=== PATIENT | female | born 1960 | race Caucasian/White ===

== ENCOUNTER 2021-02-25 08:15 | Outpatient (REF) | payer OTHER, SELFPAY ==
--- NOTE | ~2021-02-25 | XR_ITS ---
EXAMINATION: XR KNEE AP STANDING CLINICAL INFORMATION: Pain. COMPARISON: Left knee radiographs dated 03/25/2007. TECHNIQUE: AP bilateral standing view of the knees was obtained. FINDINGS: Right Knee: Mild medial compartment joint space narrowing. Small medial and lateral compartment marginal osteophytes. No osseous erosion. No fracture or dislocation. No abnormal soft tissue calcification. Left Knee: Mild medial compartment joint space narrowing. Small medial and lateral compartment marginal osteophytes. No osseous erosion. No fracture or dislocation. No abnormal soft tissue calcification. XR/XR knee standing BI IMPRESSION: RIGHT KNEE: Mild medial and lateral compartment. 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
== END 2021-02-25 08:16 | disposition home or self-care (01) ==
LOC: HO.HOSX 08:15
PROVIDERS: Visit Provider Orthopaedic Surgery
DX: M25.561 Pain in right knee (principal)
CPT/HCPCS: 20610; 73565; 99202; J1100

== ENCOUNTER → 2021-06-03 14:52 | Outpatient (BNVA) | payer OTHER, SELFPAY | PROVIDERS: Visit Provider Orthopaedic Surgery | DX: M25.561 Pain in right knee (principal) | CPT/HCPCS: 99212 ==

== ENCOUNTER 2021-07-11 08:43 | Outpatient (REF) | payer OTHER, SELFPAY | END 2021-07-11 08:44 | disposition home or self-care (01) | LOC: HO.HMGCLDS 08:43 | PROVIDERS: Visit Provider Internal Medicine | DX: Z20.822 Contact with and (suspected) exposure to COVID-19 (principal) | CPT/HCPCS: C9803; U0003; U0005 ==

== ENCOUNTER 2024-02-10 08:58 | Outpatient (AMB) | payer OTHER, SELFPAY ==
--- NOTE | 2024-02-10 09:04 | AM.OFFWIN_ITS ---
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 Patient states her symptoms have been persistent for the past 1 week. She denies having any fevers, chills, sore throat, cough or shortness for breath. Patient has been taking Tylenol without relief of her symptoms. [facility] Medical History Fatty liver Thyroid activity decreased HTN (hypertension) Diabetes 1.5, managed as type 2 Pacemaker Surgical History History of cholecystectomy H/O total hysterectomy History of right knee surgery History of Social History Alcohol intake: never Patient Tobacco Use Status: Never used Tobacco Current occupational status: employed Current occupation: right handed, school system Review of Systems Const All systems reviewed & are unremarkable except as noted in HPI and below Denies chills and Denies fever(s) Eyes Reports no additional complaints ENT Reports otalgia (bilaterally), Denies epistaxis, Denies nasal congestion, Denies nasal discharge, Denies post nasal drip, Denies tinnitus, Reports sinus pain, Reports sinus pressure and Denies sore throat Card Reports no additional complaints Resp Reports no additional complaints GI Reports no additional complaints Musc Reports no additional complaints Skin/Breast Reports system reviewed and no additional complaints, except as documented Neuro Reports no additional complaints Physical Exam Vital Signs: Last Vital Signs Temp 98.2 F 02/10/24 09:05 Pulse 76 02/10/24 09:05 BP 126/74 02/10/24 09:05 Pulse Ox 98 02/10/24 09:05 BMI result Body Mass Index 34.3 Afebrile Const General: cooperative, healthy appearing, comfortable, no acute distress, well developed, alert and awake Nutritional Appearance: average body habitus Orientation/consciousness: patient oriented x3 Limitations: no limitations HEENT Head: Yes normal to inspection Ears: hearing grossly normal bilaterally, external ears normal, right TM abnormal (complete cerumen impaction; TM not visualized) and left TM abnormal (erythema, bulging TM noted - cerumen noted) General nose exam: Normal external nose present and Normal nares present Face and sinus: Yes normal facial exam, Yes sinuses nontender and No sinus tenderness Mouth: Normal oral and palatal mucosa present and moist mucous membranes Throat: Yes posterior oropharynx normal Eyes General: appearance normal, both eyes and all related structures Neck Lymphatic: no lymphadenopathy noted Resp Effort & Inspection: normal respiratory effort and able to speak in complete sentences Auscultation: clear to auscultation bilaterally Cardio Rate: regular rate Rhythm: regular rhythm Skin General skin exam: no rashes or lesions noted Neuro General: patient oriented x3 Psych Appearance: grossly normal Mental Status: mental status grossly normal Insight: Good insight present (Psych) Judgement: Good judgement present (Psych) Assessment & Plan Assessment & Plan (1) Otitis media of left ear: Comment: right TM not visualized secondary to cerumen impaction Code(s): H66.92 - Otitis media, unspecified, left ear Qualifiers: Otitis media type: unspecified Qualified Code(s): H66.92 - Otitis media, unspecified, left ear Plan: Amoxicillin TID x 7 days; Tylenol and/or ibuprofen as needed for discomfort. (2) Cerumen impaction: Code(s): H61.20 - Impacted cerumen, unspecified ear Plan: Ear wax softening drops as needed. Medications: New amoxicillin 500 mg PO TID 21 caps 0RF Coding Level of Care Code Est Pt Level 3 (88673) Diagnoses Left otitis media, unspecified otitis media type H66.92 Otitis media type: unspecified Cerumen impaction H61.20 Time Spent (min) 20
[2024-02-10 09:05] VITALS: BP 126/74; PULSE 76; TEMP 36.8; O2SAT 98; BMI 34.3
== END 2024-02-10 09:36 | disposition home or self-care (01) ==
PROVIDERS: PCP Internal Medicine; Visit Provider Physician Assistant
DX: H66.92 Otitis media, unspecified, left ear (principal); H61.22 Impacted cerumen, left ear
CPT/HCPCS: 99213

== ENCOUNTER 2025-05-31 12:39 | Outpatient (AMB) | payer OTHER, SELFPAY ==
--- NOTE | 2025-05-31 12:54 | MHC.OFFVIS ---
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 Chemical Process Operator concerns: Chronic vulvar burning itching for over a year. Has repeated treatment with oral and topical yeast with chronic frequent recurrences. History of DM reports her blood sugars can be elevated at times. Has a follow up with the endocrine July 2025. Currently not sexually active in many years. Attempting to eat a healthy diet with calcium and vitamin D and stays active with exercise. History of hysterectomy for fibroids and AUB. Last mammogram; up-to-date at [facility], no records available.. Family history of breast cancer paternal cousin. [facility] Medical History Fatty liver Thyroid activity decreased HTN (hypertension) Diabetes 1.5, managed as type 2 Pacemaker Surgical History History of hip replacement History of cholecystectomy H/O total hysterectomy History of right knee surgery History of Social History Alcohol intake: never Patient Tobacco Use Status: Never used Tobacco Current occupational status: employed Current occupation: right handed, school system Female Reproductive History Menstrual Menopause type: surgical Total pregnancies: 4 Full term: 3 Number of Living Children: 3 Review of Systems Const All systems reviewed & are unremarkable except as noted in HPI and below Reports as per HPI Eyes Reports no additional complaints ENT Reports no additional complaints Card Reports no additional complaints Resp Reports no additional complaints GI Reports as per HPI and Reports no additional complaints Reports as per HPI Musc Reports no additional complaints Skin/Breast Reports as per HPI Neuro Reports no additional complaints Psych Reports no additional complaints Endo Reports no additional complaints Thuan/Lymph Reports no additional complaints Aller/Immun Reports no additional complaints Physical Exam Vital Signs: Last Vital Signs BP 116/70 05/31/25 12:55 BMI result Body Mass Index 32.8 Const General: cooperative, healthy appearing, no acute distress, well developed and alert Orientation/consciousness: patient oriented x3 HEENT Head: Yes normal to inspection Eyes General: appearance normal, both eyes and all related structures Neck Neck: Yes normal visual inspection Thyroid: Thyroid normal Chest Chest palpation & inspection: normal inspection of the chest and other (no puckering, dimpling, peau de orange, retraction, discharge, masses) Breast/axilla inspection: normal inspection of the breasts Breast/axilla palpation: normal palpation of the breasts Resp Effort & Inspection: normal respiratory effort GI Inspection: Yes normal to inspection Palpation (GI): Soft to palpation Rectal Exam - Female: deferred General: Yes bladder normal to palpation External Female Exam: normal external appearance, normal appearance of the urethra and erythema Speculum Exam - Vagina: normal appearance of the vagina, normal palpation and normal vaginal discharge (Scant discharge) Speculum Exam - Cervix: Cervix absent (Vaginal cuff no lesions or nodules) Bimanual exam- vagina & uterus: normal bimanual exam, normal palpation, bladder normal to palpation and uterus absent Bimanual Exam- Adnexa, other: no masses Skin General skin exam: no rashes or lesions noted Rashes: no rashes Neuro General: patient oriented x3 Cognition (Neuro): normal cognition Extrem General: Yes normal to inspection Psych Attitude: cooperative Thought process: Normal thought process present Assessment & Plan Assessment & Plan (1) Encounter for well woman exam with routine gynecological exam: Code(s): Z01.419 - Encounter for gynecological examination (general) (routine) without abnormal findings Category: Medical Plan: Discussed: Current recommendations for pap smears per ASCCP guidelines. Breast awareness, periodic self breast exams and yearly mammogram. Maintain a healthy lifestyle, well balanced diet including Calcium 1,200 mg and Vitamin D 600 IU daily, and routine exercise. Sign for release of records for mammogram. Patient verbalizes understanding and agrees to the plan of care. She was given opportunity to ask questions and all questions were answered to the best of my ability. RTO in 1 year for annual medical voucher clerk exam. This note is constructed using voice recognition software. While every effort has been made to ensure accuracy, computational sciences professor errors may have been included. (2) Vulvar irritation: Code(s): N90.89 - Other specified noninflammatory disorders of vulva and perineum Category: Medical Plan Counseled regarding vulvar irritation and self-help remedies including cool pack to relieve itching and discomfort, BV panel obtained await results for final plan of care. Use of medication. Follow up PRN. The patient expressed understanding and agreement with the plan of care. All of her questions and concerns were addressed to the best of my ability. Orders: Orders Bacterial Vaginosis Panel Today N89.8 - Other specified noninflammatory disorders of vagina Medications: New clotrimazole-betamethasone 1-0.05 % 1 appl topical BID 45 grams 1RF fungal rash 7 days Coding Level of Care Code New Pt Prev Care 40-64y(66452) Diagnoses Encounter for well woman exam with routine gynecological exam Z01.419 Vulvar irritation N90.89
[2025-05-31 12:55] VITALS: BP 116/70; BMI 32.8
== END 2025-05-31 13:42 | disposition home or self-care (01) ==
LOC: HO.HWS 12:40
PROVIDERS: PCP Internal Medicine; Visit Provider Advanced Practice Midwife
DX: Z01.419 Encounter for gynecological examination (general) (routine) without abnormal findings (principal); N90.89 Other specified noninflammatory disorders of vulva and perineum
CPT/HCPCS: 99386; 99459

== ENCOUNTER 2025-05-31 12:39 | Outpatient (REF) | payer OTHER, SELFPAY ==
[2025-05-31 17:37] LABS: Bacterial Vaginosis PCR NEGATIVE (Negative); Candida Group PCR DETECTED (Not Detect); Candida glab krusei PCR NOT DETECTED (Not Detect); Trichomonas vaginalis PCR NOT DETECTED (Not Detect)
--- OUTSIDE RECORDS SUMMARY | 2025-06-01 01:23 | XMS_ITS | Encounter Summary ---
Author Organization [facility] Address [address] [facility] [place] [address] Care Team Providers Care Manager Application Name Role Phone Trupti Jordan MD Primary Care Provider Fifi Real MD Primary Care Provider [phone] Hima Bell MD Unavailable [phone] Cadence Caceres NP Unavailable [phone] Encounter Details Date Type Department Care Team Description 12/10/2010 Radiology Manager Report Medical Records [address] [place] [address] Edd Cordon Social History Tobacco Use Types Packs/Day Years Used Date Smoking Tobacco: Never Smokeless Tobacco: Never Alcohol Use Standard Drinks/Week Comments Yes 0 (1 standard drink = 0.6 oz pur e alcohol) rare Social Isolation Answer Date Recorded In a typical week, how many times do you talk on the phone with family, friends, or neighbors? Once a week 12/14/2019 How often do you get together with friends or re latives? Once a week 12/14/2019 How often do you attend tenriism or episcopal serv ices? Never 12/14/2019 Do you belong to any clubs o r organizations such as tenriism groups, unions, fraternal or athletic groups, or school groups? No 12/14/2019 How often do you attend meet ings of the clubs or organizations you belong to? Never 12/14/2019 Are you now , , , , never or living with a partner? 12/14/2019 Physical Activity Answer Date Recorded On average, how many days pe r week do you engage in moderate to strenuous exercise (like walking fast, running, jogging, dancing, swimming, biking, or other activities that cause a light or heavy sweat)? 5 days 12/14/2019 On average, how many minutes do you engage in exercise at this level? 30 min 12/14/2019 Stress Answer Date Recorded Do you feel stress - tense, restless, nervous, or anxious, or unable to sleep at night because your mind is troubled all the time - these days? Only a little 12/14/2019 Intimate Partner Violence Answer Date R ecorded Within the last year, have y ou been afraid of your partner or ex-partner? No 12/14/2019 Within the last year, have y ou been humiliated or emotionally abused in other ways by your partner or ex-partner? No Within the last year, have y ou been kicked, hit, slapped, or otherwise physically hurt by your partner or ex-partner? No 12/14/2019 Within the last year, have y ou been raped or forced to have any kind of sexual activity by your partner or ex-partner? No 12/14/2019 Transportation Needs Answer Date Record ed In the past 12 months, has l ack of transportation kept you from medical appointments or from getting medications? No 09/2019 In the past 12 months, has l ack of transportation kept you from meetings, work, or getting things needed for daily living? No 12/14/2019 Sex Assigned at Date Recorded Not on file Job Start Date Occupation Industry Not on file Not on file Not on file documented as of this encounter Plan of Treatment Not on file documented as of this encounter Visit Diagnoses Not on filedocumented in this encounter Care Teams Manager Application Relationship Specialty Start Date End Date Trupti Jordan MD PCP - General 02/09/03 02/11/21 Fifi Lopez MD [address] [place] [address] PCP - General Internal Medicine 02/12/21 Hima Bell MD [address] [place] [address] [place] [address] Floor Mechanic Cardiovascular Disease 03/29/21 Cadence Caceres, UZAIR [address] [place] [address] [address] [place] [address] Nurse Practitioner Cardiology 10/21/21 documented as of this encounter
--- OUTSIDE RECORDS SUMMARY | 2025-06-01 01:23 | XMS_ITS | Encounter Summary ---
Author Organization [facility] Address [address] [place] [address] Care Team Providers Care Trolley Collector Name Role Phone Fifi Lopez MD Primary Care Provider [phone] Hima Bell MD Unavailable [phone] Cdaence Caceres NP Unavailable Encounter Details Date Type Department Care Team Description 11/09/2023 Pt. Non Urgent Medical Question Endocrinology - [address] [address] Jennie Soler PA-C [address] [place] [address] [id number] Social History Tobacco Use Types Packs/Day Years Used Date Smoking Tobacco: Never Passive Smoke Exposure: Past Smokeless Tobacco: Never Alcohol Use Standard Drinks/Week Comments Not Currently 0 (1 standard drink = 0.6 oz pur e alcohol) Social Isolation Answer Date Recorded In a typical week, how many times do you talk on the phone with family, friends, or neighbors? Once a week 12/14/2019 How often do you get together with friends or re latives? Once a week 12/14/2019 How often do you attend confucianist or rastafari serv ices? Never 12/14/2019 Do you belong to any clubs o r organizations such as confucianist groups, unions, fraternal or athletic groups, or [...] on file documented as of this encounter Miscellaneous Notes * Telephone Encounter - Wu Vazquez - 11/09/2023 1:43 PM EDTFrom: Myrna Zheng To: Maria Eugenia Soler Sent: 11/09/2023 1:39 PM EDT Subject: Appointment Blood Work Marianela, I have an appointment with Rakesh Soler tomorrow morning. I forgot to go get bloodwork. Should Istill keep tomorrow's appointment? Have a great time, Myrna Zheng documented in this encounter Plan of Treatment Not on file documented as of this encounter Visit Diagnoses Not on filedocumented in this encounter Care Teams Trolley Collector Relationship Specialty Start Date End Date Fifi Lopez MD [address] [place] [address] PCP - General Internal Medicine 02/12/21 Hima Bell MD [address] [place] [address] [place] [address] Front Desk Administrator Cardiovascular Disease 03/29/21 Cadence Caceres NP [address] [place] [address] [place] [address] Nurse Practitioner Cardiology 10/21/21 documented as of this encounter
--- OUTSIDE RECORDS SUMMARY | 2025-06-01 01:23 | XMS_ITS | Encounter Summary ---
Author Organization [facility] Address [address] [facility] [place] [place] [address] Care Team Providers Care Consulting Technical Manager Name Role Phone Trupti Jordan MD Primary Care Provider Fifi Real MD Primary Care Provider [phone] Hima Bell MD Unavailable [phone] Cadence Caceres NP Unavailable [phone] Encounter Details Date Type Department Care Team Description 10/30/2010 Hospital Medical Records [address] [place] [address] Arun Snell MD Social History Tobacco Use Types Packs/Day Years [...] week 12/14/2019 How often do you attend episcopal or faith serv ices? Never 12/14/2019 Do you belong to any clubs o r organizations such as episcopal groups, unions, fraternal or athletic groups, or [...] on filedocumented in this encounter Care Teams Consulting Technical Manager Relationship Specialty Start Date End Date Trupti Jordan MD PCP - General 02/09/03 02/11/21 Fifi Lopez MD [address] [place] [address] PCP - General Internal Medicine 02/12/21 Hima Bell MD [address] [place] [address] [place] [address] College [employer] Dean Cardiovascular Disease 03/29/21 Cadence Caceres, UZAIR [address] [place] [address] Nurse Practitioner Cardiology 10/21/21 documented as of this encounter
--- OUTSIDE RECORDS SUMMARY | 2025-06-01 01:23 | XMS_ITS | Encounter Summary ---
Author Organization [facility] Address [address] [facility] [place] [address] Care Team Providers Care Pumper Brewery Name Role Phone Trupti Jordan MD Primary Care Provider Fifi Real MD Primary Care Provider [phone] Hima Bell MD Unavailable [phone] Cadence Caceres NP Unavailable [phone] Encounter Details Date Type Department Care Team Description 12/12/2011 Field Hand Report Medical Records [address] [place] [address] Shivam Ramos PA-C Social History Tobacco Use Types Packs/Day Years [...] week 12/14/2019 How often do you attend congregational or alevism serv ices? Never 12/14/2019 Do you belong to any clubs o r organizations such as congregational groups, unions, fraternal or athletic groups, or [...] on filedocumented in this encounter Care Teams Pumper Brewery Relationship Specialty Start Date End Date Trupti Jordan MD PCP - General 02/09/03 02/11/21 Fifi Lopez MD [address] [place] [address] PCP - General Internal Medicine 02/12/21 Hima [place] MD [address] [place] [address] [place] [address] Radiographic Technologist Cardiovascular Disease 03/29/21 aCdence Caceres, UZAIR [address] [place] [address] [address] [place] [address] Nurse Practitioner Cardiology 10/21/21 documented as of this encounter
--- OUTSIDE RECORDS SUMMARY | 2025-06-01 01:23 | XMS_ITS | Encounter Summary ---
Author Organization [facility] Address [address] [place] [address] Care Team Providers Care Wool Sorter Name Role Phone Fifi Lopez MD Primary Care Provider [phone] Hima Bell MD Unavailable [phone] Cadence Caceres NP Unavailable Reason for Visit * Reason Comments E-prescribe Rx Request Encounter Details Date Type Department Care Team Description 05/22/2023 Refill Adult Medicine [address] [address] Jennie Soler PA-C [address] [place] [address] E-prescribe Rx Request Social History Tobacco Use Types Packs/Day Years [...] week 12/14/2019 How often do you attend mosque or mormon serv ices? Never 12/14/2019 Do you belong to any clubs o r organizations such as mosque groups, unions, fraternal or athletic groups, or [...] file Not on file Not on file COVID-19 Exposure Response Date Recorded In the last 10 days, have yo u been in contact with someone who was confirmed or suspected to have Coronavirus/COVID-19? No / Unsure 05/15/2023 3:11 PM EDT documented as of this encounter Miscellaneous Notes * Telephone Encounter - Syd Cheng - 05/22/2023 9:54 AM EST Donny 05/01/23 Ov 08/11/23 Lab Results Component Value Date HGBA1C 7.4 04/29/2023 MALBUR 11.2 09/03/2022 MALBCR 7.9 09/03/2022 CHOL 188 09/03/2022 LDL 80 09/03/2022 HDL 51 09/03/2022 TRIG 285 09/03/2022 GLU 318 12/22/2022 CREAT 0.90 12/22/2022 documented in this encounter Plan of Treatment Not on file documented as of this encounter Visit Diagnoses Diagnosis Type 2 diabetes mellitus with microalbuminuria, without long-term current use of insulin (HCC) documented in this encounter Care Teams Wool Sorter Relationship Specialty Start Date End Date Fifi Lopez MD [address] [place] [address] PCP - General Internal Medicine 02/12/21 Hima [place] MD [address] [place] [address] [place] [address] Ham Passer Cardiovascular Disease 03/29/21 Cadence Caceres NP [address] [place] [address] [address] [place] [address] Nurse Practitioner Cardiology 10/21/21 documented as of this encounter
--- OUTSIDE RECORDS SUMMARY | 2025-06-01 01:23 | XMS_ITS | Encounter Summary ---
Author Organization [facility] Address [address] [place] [address] Care Team Providers Care Logger Driving Horses Name Role Phone Fifi Lopez MD Primary Care Provider [phone] Hima Bell MD Unavailable [phone] Cadence Caceres NP Unavailable [phone] Encounter Details Date Type Department Care Team Description 12/28/2022 Refill Adult Medicine [address] [address] Fifi Lopez MD [address] [place] [address] [id number] Social History Tobacco Use Types Packs/Day Years [...] week 12/14/2019 How often do you attend anglican or methodist serv ices? Never 12/14/2019 Do you belong to any clubs o r organizations such as anglican groups, unions, fraternal or athletic groups, or [...] suspected to have Coronavirus/COVID-19? No / Unsure 12/29/2022 2:21 PM EDT documented as of this encounter Miscellaneous Notes * Telephone Encounter - Anita Ruiz M.A. - 12/29/2022 3:49 PM EDT GERARDO 12/29/2022 F/U appt 02/13/2023 Lab Results Component Value Date NA 137 12/22/2022 K 3.4 12/22/2022 CO2 27 12/22/2022 CL 101 12/22/2022 BUN 19 12/22/2022 CREAT 0.90 12/22/2022 GLU 318 12/22/2022 CA 9.3 12/22/2022 GFR 72 12/22/2022 documented in this encounter Plan of Treatment Not on file documented as of this encounter Visit Diagnoses Not on filedocumented in this encounter Care Teams Logger Driving Horses Relationship Specialty Start Date End Date Fifi Lopez MD [address] [place] [address] PCP - General Internal Medicine 02/12/21 Hima [place] MD [address] [place] [address] [address] [place] [address] Toxicologist Cardiovascular Disease 03/29/21 Cadence Caceres NP [address] [place] [address] [address] [place] [address] Nurse Practitioner Cardiology 10/21/21 documented as of this encounter
--- OUTSIDE RECORDS SUMMARY | 2025-06-01 01:23 | XMS_ITS | Encounter Summary ---
Author Organization [facility] Address [address] [place] [address] Care Team Providers Care Environmental Health And Safety Intern Name Role Phone Fifi Lopez MD Primary Care Provider [phone] Hima Bell MD Unavailable [phone] Cadence Caceres NP Unavailable [phone] Encounter Details Date Type Department Care Team Description 05/01/2023 Orders Only Medical Records 4 [facility] [address] Pancho Mota OD Social History Tobacco Use Types Packs/Day Years [...] week 12/14/2019 How often do you attend orthodox or caodaism serv ices? Never 12/14/2019 Do you belong to any clubs o r organizations such as orthodox groups, unions, fraternal or athletic groups, or [...] suspected to have Coronavirus/COVID-19? No / Unsure 05/01/2023 3:08 PM EDT documented as of this encounter Plan of Treatment Not on file documented as of this encounter Procedures Procedure Name Priority Date/Time Associated Diagnosis Comments OUTSIDE EYE EXAM Routine 04/24/2023 documented in this encounter Results * OUTSIDE EYE EXAM (04/24/2023) Pancho Mtoa OD PROCEDURES documented in this encounter Visit Diagnoses Not on filedocumented in this encounter Care Teams Environmental Health And Safety Intern Relationship Specialty Start Date End Date Fifi Lopez MD [address] [place] [address] PCP - General Internal Medicine 02/12/21 Hima Bell MD [address] [place] [address] [address] [place] [address] Mail Carrier And Clerk Cardiovascular Disease 03/29/21 Cadence Caceres NP [address] [place] [address] DRIVE [address] [place], [place] [id number] Nurse Practitioner Cardiology 10/21/21 documented as of this encounter
--- OUTSIDE RECORDS SUMMARY | 2025-06-01 01:23 | XMS_ITS | Encounter Summary ---
Author Organization [facility] Address [address] [facility] [place] [address] Care Team Providers Care Waste Water Operator Name Role Phone Trupti Jordan MD Primary Care Provider Fifi Real MD Primary Care Provider [phone] Hima Bell MD Unavailable [phone] Cadence Caceres NP Unavailable [phone] Encounter Details Date Type Department Care Team Description 06/27/2015 Hospital Medical Records [address] [place] [address] Laz Stewart MD Social History Tobacco Use Types Packs/Day [...] week 12/14/2019 How often do you attend gnosticist or pentecostalism serv ices? Never 12/14/2019 Do you belong to any clubs o r organizations such as gnosticist groups, unions, fraternal or athletic groups, or [...] on filedocumented in this encounter Care Teams Waste Water Operator Relationship Specialty Start Date End Date Trupti Jordan MD PCP - General 02/09/03 02/11/21 Fifi Lopez MD [address] [place] [address] PCP - General Internal Medicine 02/12/21 Hima Bell MD [address] [place] [address] [place] [address] Sheep Farmer Cardiovascular Disease 03/29/21 Cadence Caceres, UZAIR [address] [place] [address] DR[address] [place] [address] Nurse Practitioner Cardiology 10/21/21 documented as of this encounter
--- OUTSIDE RECORDS SUMMARY | 2025-06-01 01:23 | XMS_ITS | Encounter Summary ---
Author Organization [facility] Address [address] [facility] [place] [address] Care Team Providers Care New Vehicle Sales Consultant Name Role Phone Trupti Jordan MD Primary Care Provider Fifi Real MD Primary Care Provider [phone] Hima Bell MD Unavailable [phone] Cadence Caceres NP Unavailable [phone] Encounter Details Date Type Department Care Team Description 11/01/2010 Release of Information Orthopedic Surgery - [address] [place] [address] Abstract, Provider Social History Tobacco Use Types Packs/Day Years [...] week 12/14/2019 How often do you attend hoahaoism or samaritan serv ices? Never 12/14/2019 Do you belong to any clubs o r organizations such as hoahaoism groups, unions, fraternal or athletic groups, or [...] on filedocumented in this encounter Care Teams New Vehicle Sales Consultant Relationship Specialty Start Date End Date Trupti Jordan MD PCP - General 02/09/03 02/11/21 Fifi Lopez MD [address] [place] [address] PCP - General Internal Medicine 02/12/21 Hima Bell MD [address] [place] [address] [place] [address] Wastewater Treatment Plant Instructor Cardiovascular Disease 03/29/21 Cadence Caceres, UZAIR [address] [place] [address] DRIVE [address] [place] [address] Nurse Practitioner Cardiology 10/21/21 documented as of this encounter
--- OUTSIDE RECORDS SUMMARY | 2025-06-01 01:23 | XMS_ITS | Encounter Summary ---
Author Organization [facility] Address [address] [facility] [place] [address] Care Team Providers Care Fur Clipper Name Role Phone Trupti Jordan MD Primary Care Provider Fifi Real MD Primary Care Provider [phone] Hima Bell MD Unavailable [phone] Cadence Caceres NP Unavailable [phone] Encounter Details Date Type Department Care Team Description 11/06/2011 Hospital Medical Records [address] [place] [address] Oswaldo Doran Social History Tobacco Use Types Packs/Day Years [...] week 12/14/2019 How often do you attend taoism or anabaptist serv ices? Never 12/14/2019 Do you belong to any clubs o r organizations such as taoism groups, unions, fraternal or athletic groups, or [...] on filedocumented in this encounter Care Teams Fur Clipper Relationship Specialty Start Date End Date Trupti Jordan MD PCP - General 02/09/03 02/11/21 Fifi Lopez MD [address] [place] [address] PCP - General Internal Medicine 02/12/21 Hima Bell MD [address] [place] [address] [place] [address] Finance Executive Cardiovascular Disease 03/29/21 Cadence Caceres, UZAIR [address] [place] [address] DR[address] [place] [address] Nurse Practitioner Cardiology 10/21/21 documented as of this encounter
--- OUTSIDE RECORDS SUMMARY | 2025-06-01 01:23 | XMS_ITS | Encounter Summary ---
Author Organization [facility] Address [address] [facility] [place] [address] Care Team Providers Care Dormitory Maid Name Role Phone Fifi Lopez MD Primary Care Provider [phone] Hima Bell MD Unavailable [phone] Cadence Caceres NP Unavailable [phone] Reason for Visit * Reason Onset Date Comments refill request 03/03/2023 glyBURIDE (DIABE TA) 5 MG tablet Encounter Details Date Type Department Care Team Description 03/03/2023 Refill Adult Medicine [address] [id number] Fifi Lopez MD [address] [place] [phone] refill request (glyBURIDE (DIABETA) 5 MG tablet) Social History Tobacco Use Types Packs/Day Years [...] week 12/14/2019 How often do you attend gnosticism or uatsdin serv ices? Never 12/14/2019 Do you belong to any clubs o r organizations such as gnosticism groups, unions, fraternal or athletic groups, or [...] suspected to have Coronavirus/COVID-19? No / Unsure 02/13/2023 9:16 AM EDT documented as of this encounter Miscellaneous Notes * Telephone Encounter - Jan Nava - 03/03/2023 10:52 AM EDT Patient would like script to be: E-PRESCRIBED/FAXED TO PHARMACY WHEN WAS THE PATIENT'S LAST APPOINTMENT IN [facility]? 01/29/2023 WITH BEATRIZ SCHMID WHEN WAS THE LAST TIME THE PATIENT SAW THEIR PCP? Same as above Does patient have an upcoming appointment? Yes 05/01/2023 WITH BEATRIZ SCHMID (THE MEDICATION REQUESTED IS ON THE MED LIST ABOVE) All of the medications requested were on the CURRENT MEDS list Did you check the Pharmacy information above?: YES Patient wants: 90 -day supply Is this a mail order prescription request ? NO If the refill is from a FAXED refill request what is the RX # listed on the fax? N/A Patients current insurance carrier is: Payor: [employer] / [facility] / Product Type: HMO [id number] documented in this encounter Plan of Treatment Not on file documented as of this encounter Visit Diagnoses Diagnosis Type 2 diabetes mellitus with microalbuminuria, without long-term current use of insulin (HCC)- Primary documented in this encounter Care Teams Dormitory Maid Relationship Specialty Start Date End Date Fifi Lopez MD [address] [place] [address] PCP - General Internal Medicine 02/12/21 Hima Bell MD [address] [place] [address] [place] [address] Art Educator Cardiovascular Disease 03/29/21 Cadence Caceres NP [address] [place] [address] [address] [place] [address] Nurse Practitioner Cardiology 10/21/21 documented as of this encounter
--- OUTSIDE RECORDS SUMMARY | 2025-06-01 01:23 | XMS_ITS | Encounter Summary ---
Author Organization [facility] Address [address] [place] [address] Care Team Providers Care Field Recorder Name Role Phone Trupti Jordan MD Primary Care Provider Fifi Real MD Primary Care Provider [phone] Hima Bell MD Unavailable [phone] Cadence Caceres NP Unavailable [phone] Encounter Details Date Type Department Care Team Description 09/02/2017 Refill Adult Medicine [address] [address] Trupti Jordan MD Social History Tobacco Use Types Packs/Day Years Used Date Smoking Tobacco: Never Smokeless Tobacco: Never Alcohol Use Standard Drinks/Week Comments Yes 0 (1 standard drink = 0.6 oz pur e alcohol) 6 drinks per yr Social Isolation Answer Date Recorded In a typical week, how many times do you talk on the phone with family, friends, or neighbors? Once a week 12/14/2019 How often do you get together with friends or re latives? Once a week 12/14/2019 How often do you attend worship or amish serv ices? Never 12/14/2019 Do you belong to any clubs o r organizations such as worship groups, unions, fraternal or athletic groups, or [...] encounter Miscellaneous Notes * Telephone Encounter - Macie Talamantes M.A. - 09/02/2017 10:12 AM EST Lab Results Component Value Date HGBA1C 7.1 08/19/2017 MALBUR 9.7 08/19/2017 MALBCR 5.8 08/19/2017 CHOL 172 08/19/2017 LDL 85 08/19/2017 HDL 62 08/19/2017 TRIG 125 08/19/2017 GLU 125 08/19/2017 CREAT 0.6 08/19/2017 Lab Results Component Value Date TSH 2.23 04/24/2017 Last ov 08/24/17 * Telephone Encounter - Macie Talamantes M.A. - 09/02/2017 10:11 AM ESTFrom: Myrna Zheng To: Trupti Jordan MD Sent: 09/02/2017 9:31 AM EST Subject: Medication Renewal Request Original authorizing provider: MD Myrna Perez would like a refill of the following medications: levothyroxine (SYNTHROID, LEVOTHROID) 25 MCG tablet [Trupti Jordan MD] glyBURIDE (DIABETA) 5 MG tablet [Trupti Jordan MD] metformin (GLUCOPHAGE) 850 MG tablet [Trupti Jordan MD] Preferred pharmacy: [facility] [address] [place] [address] AT Comment: documented in this encounter Plan of Treatment Not on file documented as of this encounter Visit Diagnoses Not on filedocumented in this encounter Care Teams Field Recorder Relationship Specialty Start Date End Date Trupti Jordan MD PCP - General 02/09/03 02/11/21 Fifi Lopez MD [address] [place] [address] PCP - General Internal Medicine 02/12/21 Hima Bell MD [address] [place] [address] [place] [address] Plastic Molding Operator Cardiovascular Disease 03/29/21 Cadence Caceres NP [address] [place] [address] [place] [address] Nurse Practitioner Cardiology 10/21/21 documented as of this encounter
--- OUTSIDE RECORDS SUMMARY | 2025-06-01 01:23 | XMS_ITS | Encounter Summary ---
Author Organization [facility] Address [address] [facility] [place] [address] Care Team Providers Care Chief Concierge Name Role Phone Trupit Jordan MD Primary Care Provider Fifi Real MD Primary Care Provider [phone] Hima Bell MD Unavailable [phone] Cadence Caceres NP Unavailable [phone] Encounter Details Date Type Department Care Team Description 01/24/2015 Clinical Counselor Report Medical Records [address] [place] [address] Laz Stewart MD Social History Tobacco Use [...] week 12/14/2019 How often do you attend cheondoism or cheondoism serv ices? Never 12/14/2019 Do you belong to any clubs o r organizations such as cheondoism groups, unions, fraternal or athletic groups, or [...] on filedocumented in this encounter Care Teams Chief Concierge Relationship Specialty Start Date End Date Trupti Jordan MD PCP - General 02/09/03 02/11/21 Fifi Lopez MD [address] [place] [address] PCP - General Internal Medicine 02/12/21 Hima Bell MD [address] [place] [address] [place] [address] Auto Body Repairer Cardiovascular Disease 03/29/21 Cadence Caceres, UZAIR [address] [facility] [address] [place] [address] Nurse Practitioner Cardiology 10/21/21 documented as of this encounter
--- OUTSIDE RECORDS SUMMARY | 2025-06-01 01:23 | XMS_ITS | Encounter Summary ---
Author Organization [facility] Address [address] [facility] [place] [address] Care Team Providers Care Managing Supervisor Name Role Phone Fifi Lopez MD Primary Care Provider [phone] Hima Bell MD Unavailable [phone] Cadence Caceres NP Unavailable [phone] Encounter Details Date Type Department Care Team Description 11/30/2022 Refill Gastroenterology - [address] [place] [phone] Siva Andrade PA-C Social History Tobacco Use Types Packs/Day [...] week 12/14/2019 How often do you attend denominational or samaritan serv ices? Never 12/14/2019 Do you belong to any clubs o r organizations such as denominational groups, unions, fraternal or athletic groups, or [...] suspected to have Coronavirus/COVID-19? No / Unsure 11/17/2022 7:59 AM EDT documented as of this encounter Plan of Treatment Not on file documented as of this encounter Visit Diagnoses Diagnosis Irritable bowel syndrome with both constipation and diarrhea documented in this encounter Care Teams Managing Supervisor Relationship Specialty Start Date End Date Fifi Lopez MD [address] [place] [address] PCP - General Internal Medicine 02/12/21 Hima Bell MD [address] [place] [address] [address] [place] [address] Buffing And Polishing Wheel Repairer Cardiovascular Disease 03/29/21 Cadence Caceres NP [address] [place] [address] DR[address] [place] [address] Nurse Practitioner Cardiology 10/21/21 documented as of this encounter
--- OUTSIDE RECORDS SUMMARY | 2025-06-01 01:23 | XMS_ITS | Encounter Summary ---
Author Organization [facility] Address [address] [place] [address] Care Team Providers Care Compliance Engineer Products Name Role Phone Trupti Jordan MD Primary Care Provider Fifi Real MD Primary Care Provider [phone] Hima Bell MD Unavailable [phone] Cadence Caceres NP Unavailable [phone] Encounter Details Date Type Department Care Team Description 12/23/2019 Pt. Non Urgent Medic al Question Adult Medicine [address] [place] [address] Trupti Jordan MD Social History Tobacco Use [...] week 12/14/2019 How often do you attend scientologist or hoahaoism serv ices? Never 12/14/2019 Do you belong to any clubs o r organizations such as scientologist groups, unions, fraternal or athletic groups, or [...] encounter Miscellaneous Notes * Telephone Encounter - Belkis Gagnon M.A. - 12/23/2019 2:12 PM EDTFrom: Myrna Zheng To: Trupti Jordan MD Sent: 12/23/2019 2:11 PM EDT Subject: Lab work Good afternoon, I received a call earlier. I need to go back to the lab to have more blood drawn. I will go on Thursday. Apparently the sample needed to be tested at a different lab. Why is that? I tend to worry. Have a great day, Tiana Zheng documented in this encounter Plan of Treatment Not on file documented as of this encounter Visit Diagnoses Not on filedocumented in this encounter Care Teams Compliance Engineer Products Relationship Specialty Start Date End Date Trupti Jordan MD PCP - General 02/09/03 02/11/21 Fifi Lopez MD [address] [place] [address] PCP - General Internal Medicine 02/12/21 Hima Bell MD [address] [place] [address] [address] [place] [address] Machine I Cutter Cardiovascular Disease 03/29/21 Cadence Caceres NP [address] [place] [address] DR[address] [place] [address] Nurse Practitioner Cardiology 10/21/21 documented as of this encounter
--- OUTSIDE RECORDS SUMMARY | 2025-06-01 01:23 | XMS_ITS | Encounter Summary ---
Author Organization [facility] Address [address] [facility] [place] [address] Care Team Providers Care Information Services Tech Name Role Phone Fifi Lopez MD Primary Care Provider [phone] Hima Bell MD Unavailable [phone] Cadence Caceres NP Unavailable [phone] Reason for Visit * Reason Comments E-prescribe Rx Request Encounter Details Date Type Department Care Team Description 08/09/2023 Refill Gastroenterology [address] [place] [phone] Siva Andrade PA-C E-prescribe Rx Request Social History Tobacco Use [...] week 12/14/2019 How often do you attend caodaism or advent serv ices? Never 12/14/2019 Do you belong to any clubs o r organizations such as caodaism groups, unions, fraternal or athletic groups, or [...] encounter Miscellaneous Notes * Telephone Encounter - Zohreh Zhang M.A. - 08/10/2023 10:06 AM EST [place] 02/14/2021 NOV none documented in this encounter Plan of Treatment Not on file documented as of this encounter Visit Diagnoses Not on filedocumented in this encounter Care Teams Information Services Tech Relationship Specialty Start Date End Date Fifi Lopez MD [address] [place] [address] PCP - General Internal Medicine 02/12/21 Hima Bell MD [address] [place] [address] [address] [place] [address] Cutter Operator Cardiovascular Disease 03/29/21 Cadence Caceres NP [address] [place] [address] [address]IVE [address] [place] [address] Nurse Practitioner Cardiology 10/21/21 documented as of this encounter
--- OUTSIDE RECORDS SUMMARY | 2025-06-01 01:24 | XMS_ITS | Encounter Summary ---
Author Organization [facility] Address [address] [place] [address] Care Team Providers Care Filter Bed Placer Name Role Phone Fifi Lopez MD Primary Care Provider [phone] Hima Bell MD Unavailable [phone] Cadence Caceres NP Unavailable [phone] Reason for Visit * Reason Comments E-prescribe Rx Request Encounter Details Date Type Department Care Team Description 05/05/2024 Refill Endocrinology - [address] [address] Jennie Soler PA-C [address] [place] [address] E-prescribe Rx Request Social History Tobacco Use [...] week 12/14/2019 How often do you attend jew or yazdanism serv ices? Never 12/14/2019 Do you belong to any clubs o r organizations such as jew groups, unions, fraternal or athletic groups, or [...] encounter Miscellaneous Notes * Telephone Encounter - Ruby [place] M.A. - 05/05/2024 10:44 AM EDT Donny 02/10/24 Nov 05/13/24 Lrf 02/10/24 Lab Results Component Value Date HGBA1C 9.8 02/08/2024 MALBUR 10.3 11/10/2023 MALBCR 6.6 11/10/2023 CHOL 166 11/10/2023 LDL 77 11/10/2023 HDL 53 11/10/2023 TRIG 183 11/10/2023 GLU 224 02/08/2024 CREAT 0.82 02/08/2024 Please review, thanks * Telephone Encounter - Gianna Harrison - 05/05/2024 10:40 AM EDT Patient would like script to be: E-PRESCRIBED/FAXED TO PHARMACY WHEN WAS THE PATIENT'S LAST APPOINTMENT IN ADULT MEDICINE? 12/21/23 WHEN WAS THE LAST TIME THE PATIENT SAW THEIR PCP? Same as above Does patient have an upcoming appointment? Yes 07/07/24 (THE MEDICATION REQUESTED IS ON THE MED [...] N/A Patients current insurance carrier is: [facility]or: [facility] / Plan: [facility] CC PLAN3 $0/$22 [id number] / Product Type: HMO [id number] documented in this encounter Plan of Treatment Not on file documented as of this encounter Visit Diagnoses Not on filedocumented in this encounter Care Teams Filter Bed Placer Relationship Specialty Start Date End Date Fifi Lopez MD [address] [place] [address] PCP - General Internal Medicine 02/12/21 Hima Bell MD [address] [facility] [address] [place] [address] Furnace Liner Cardiovascular Disease 03/29/21 Cadence Caceres NP [address] [place] [address] [place] [address] Nurse Practitioner Cardiology 10/21/21 documented as of this encounter
--- OUTSIDE RECORDS SUMMARY | 2025-06-01 01:24 | XMS_ITS | Encounter Summary ---
Author Organization [facility] Address [address] [facility] [place] [address] Care Team Providers Care Tire Man Name Role Phone Trupti Jordan MD Primary Care Provider Fifi Real MD Primary Care Provider [phone] Hima Bell MD Unavailable [phone] Cadence Caceres NP Unavailable [phone] Reason for Visit * Reason Onset Date Comments Remote Device Check 10/29/2020 AI / thoraci c impedance trending down Encounter Details Date Type Department Care Team Description 10/29/2020 Telephone Cardio PVC POC [address] [facility] [address] [place] [address] Hima Bell MD [address] [place] [address] [address] [place] [address] Remote Device Check (AI / thoracic impedance trending down ) Social History Tobacco Use Types Packs/Day Years [...] week 12/14/2019 How often do you attend yarsani or restorationist serv ices? Never 12/14/2019 Do you belong to any clubs o r organizations such as yarsani groups, unions, fraternal or athletic groups, or [...] Exposure Response Date Recorded In the last month, have you been in contact with someone who was confirmed or suspected to have Coronavirus / COVID-19? No / Unsure 10/15/2020 3:12 PM EDT documented as of this encounter Miscellaneous Notes * Telephone Encounter - Mary Varela C.M.A. - 10/29/2020 11:49 AM EDT Remote device check shows thoracic impedance is trending down ([facility]) LMOM asking patient to call if she has any symptoms to go along with this. documented in this encounter Plan of Treatment Not on file documented as of this encounter Visit Diagnoses Not on filedocumented in this encounter Care Teams Tire Man Relationship Specialty Start Date End Date Trupti Jordan MD PCP - General 02/09/03 02/11/21 Fifi Lopez MD [address] [place] [address] PCP - General Internal Medicine 02/12/21 Hima Bell MD [address] [place] [address] [place] [address] Social Welfare Clerk Cardiovascular Disease 03/29/21 Cadence Caceres NP [address] [place] [address] [address] [place] [address] Nurse Practitioner Cardiology 10/21/21 documented as of this encounter
--- OUTSIDE RECORDS SUMMARY | 2025-06-01 01:24 | XMS_ITS | Encounter Summary ---
Author Organization [facility] Address [address] [place] [address] Care Team Providers Care Bereavement Coordinator Name Role Phone Trupti Jordan MD Primary Care Provider Fifi Real MD Primary Care Provider [phone] Hima Bell MD Unavailable [phone] Cadence Caceres NP Unavailable [phone] Reason for Visit * Reason Onset Date Comments Faxed Refill 07/11/2020 Encounter Details Date Type Department Care Team Description 07/11/2020 Refill Adult Medicine [address] [address] Trupti Jordan MD Faxed Refill Social History Tobacco Use Types Packs/Day Years [...] week 12/14/2019 How often do you attend jainism or hindu serv ices? Never 12/14/2019 Do you belong to any clubs o r organizations such as jainism groups, unions, fraternal or athletic groups, or [...] encounter Miscellaneous Notes * Telephone Encounter - Jennifer Anderson M.A. - 07/11/2020 4:29 PM EST Lab Results Component Value Date TSH 2.51 10/21/2018 * Telephone Encounter - Gina Olson - 07/11/2020 3:57 PM EST Patient would like script to be: E-PRESCRIBED/FAXED TO PHARMACY WHEN WAS THE PATIENT'S LAST APPOINTMENT IN ADULT MEDICINE? 05/07/2020 WHEN WAS THE LAST TIME THE PATIENT SAW THEIR PCP? Same as above Does patient have an upcoming appointment? Yes 08/13/2020 (THE MEDICATION REQUESTED IS ON THE MED [...] N/A Patients current insurance carrier is: Payor: [employer] / Plan: [employer]-[place] [place] TYPE 2 / Product Type: HMO [id number] documented in this encounter Plan of Treatment Not on file documented as of this encounter Visit Diagnoses Not on filedocumented in this encounter Care Teams Bereavement Coordinator Relationship Specialty Start Date End Date Trupti Jordan MD PCP - General 02/09/03 02/11/21 Fifi Lopez MD [address] [place] [address] [id number] PCP - General Internal Medicine 02/12/21 Hima Bell MD [address] [place] [address] [place] [address] Detail Sergeant Cardiovascular Disease 03/29/21 Cdaence Caceres NP [address] [place] [address] [place] [address] Nurse Practitioner Cardiology 10/21/21 documented as of this encounter
--- OUTSIDE RECORDS SUMMARY | 2025-06-01 01:24 | XMS_ITS | Encounter Summary ---
Author Organization [facility] Address [address] [facility] [place] [address] Care Team Providers Care Neon Glass Bender Name Role Phone Fifi Lopez MD Primary Care Provider [phone] Hima Bell MD Unavailable [phone] Cadence Caceres NP Unavailable [phone] Encounter Details Date Type Department Care Team Description 03/20/2021 Telephone Gastroenterology - [facility] [address] [facility] [address] [place] [address] Phuc Coello PA-C Social History Tobacco Use Types Packs/Day [...] week 12/14/2019 How often do you attend zoroastrianism or sikhism serv ices? Never 12/14/2019 Do you belong to any clubs o r organizations such as zoroastrianism groups, unions, fraternal or athletic groups, or [...] have Coronavirus / COVID-19? No / Unsure 02/26/2021 12:52 PM EDT documented as of this encounter Miscellaneous Notes * Telephone Encounter - Yovana Scott M.A. - 03/20/2021 1:22 PM EDT Left voice message with the reminder that per Cam request to complete stool studies prior to seeingher on 03/25. documented in this encounter Plan of Treatment Not on file documented as of this encounter Visit Diagnoses Not on filedocumented in this encounter Care Teams Neon Glass Bender Relationship Specialty Start Date End Date Fifi Lopez MD [address] [place] [address] PCP - General Internal Medicine 02/12/21 Hima Bell MD [address] [place] [address] [address] [place] [address] Asbestos Abatement Worker Cardiovascular Disease 03/29/21 Cadence Caceres NP [address] [place] [address] DR[address] [place] [address] Nurse Practitioner Cardiology 10/21/21 documented as of this encounter
--- OUTSIDE RECORDS SUMMARY | 2025-06-01 01:24 | XMS_ITS | Encounter Summary ---
Author Organization [facility] Address [address] [place] [place] [address] Care Team Providers Care Bleacher Operator Name Role Phone Trupti Jordan MD Primary Care Provider Fifi Real MD Primary Care Provider [phone] Hima Bell MD Unavailable [phone] Cadence Caceres NP Unavailable [phone] Reason for Visit * Reason Onset Date Comments Follow-up Appt Unavailable 10/16/2017 Encounter Details Date Type Department Care Team Description 10/16/2017 Telephone Eye Services-[address] [address] [place] Follow-up Appt Unavailable Social History Tobacco Use Types Packs/Day Years [...] week 12/14/2019 How often do you attend religious or shinto serv ices? Never 12/14/2019 Do you belong to any clubs o r organizations such as religious groups, unions, fraternal or athletic groups, or [...] encounter Miscellaneous Notes * Telephone Encounter - Anel Woodward - 10/19/2017 3:26 PM EDT Called patient back to verify appointment for 10-22-17 @ 10:40 patient will check work schedule andcallback if needs to reschedule. * Telephone Encounter - Eleni Atkinson M.A. - 10/19/2017 12:04 PM EDT Called patient left message on answering machine to call the eye dept at [facility]. Called to confirm appt that had to be cancelled from 10/21/17 and rescheduled to 10/22/17 at 10:40am. Please confirm appt with patient to make sure appt date and time is okay for the patient. * Telephone Encounter - Sienna Houston - 10/16/2017 4:28 PM EDT Follow up appointment not available. Please call patient to book-no open NON PUBLIC SLOTS. Appointment needed any time wk of 10/19/2017 documented in this encounter Plan of Treatment Not on file documented as of this encounter Visit Diagnoses Not on filedocumented in this encounter Care Teams Bleacher Operator Relationship Specialty Start Date End Date Trupti Jordan MD PCP - General 02/09/03 02/11/21 Fifi Lopez MD [address] [place] [address] PCP - General Internal Medicine 02/12/21 Hima Bell MD [address] [place] [address] [place] [address] Driver Trainer Cardiovascular Disease 03/29/21 Cadence Caceres NP [address] [place] [address] [place] [address] Nurse Practitioner Cardiology 10/21/21 documented as of this encounter
--- OUTSIDE RECORDS SUMMARY | 2025-06-01 01:24 | XMS_ITS | Clinical Summary ---
Author Organization [facility] Address [address] [facility] [place] [address] Care Team Providers Care Juice Scaleman Name Role Phone Fifi Lopez MD Primary Care Provider [phone] Hima Bell MD Unavailable Cadence Caceres NP Unavailable [phone] Allergies Active Allergy Reactions Severity Noted Date Comments Herrera Inhibitors Swelling/Edema 11/01/2018 Angioedema Buffered Aspirin Hives/Urticaria 12/10/2005 Aspirin 02/14/2021 Lisinopril 02/14/2021 Mushroom 02/14/2021 Medications Medication Sig Dispensed Refills Start Date End Date Status Probiotic Product (PROBIOTIC OR) Take by mouth daily. 0 Active Multiple Vitamins-Minerals (MULTIVITAMIN OR) Take by mouth daily. 0 Active Glucose Blood (FREESTYLE LITE) Strip Apply 1 Strip topically every morning (before breakfast). 100 Strip 0 06/19/2023 Active potassium chloride (K-DUR) 10 MEQ tabletIndications:PSV T (paroxysmal supraventricular tachycardia) ([facility]) Take 1 Tablet by mouth daily. 90 Tablet 1 11/25/2023 Active EpiPen 2-Marco 0.3 MG/0.3ML Solution Auto-injector Inject 1 Device as directed as needed (anaphylaxis or severe throat symptoms). Use as directed. Call 911 immediately after use 2 Each 3 12/21/2023 Active simvastatin (ZOCOR) 40 MG tablet Take 1 Tablet by mouth at bedtime. 90 Tablet 1 12/21/2023 Active metoprolol (TOPROL-XL) 25 MG 24 hr tablet Take 1 Tablet by mouth every 12 hours. 180 Tablet 1 12/21/2023 Active hydrALAZINE (APRESOLINE) 10 MG tablet Take 1 Tablet by mouth every 12 hours. 180 Tablet 1 12/21/2023 Active metformin (GLUCOPHAGE-XR) 500 MG 24 hr tabletIndications:Typ e 2 diabetes mellitus with microalbuminuria, without long-term current use of insulin (HCC) Take 2 Tablets by mouth 2 times daily (with meals). 360 Tablet 1 12/21/2023 Active omeprazole (PRILOSEC) 40 MG capsule Take 1 Capsule by mouth daily. Take in am on empty stomach, wait 30 mins and then eat to activate the medication 30 Capsule 11 12/22/2023 Active Meclizine HCl 25 MG Tab Take 1 Tablet by mouth 2 times daily as needed (nausea). 90 Tablet 3 01/22/2024 Active dicyclomine (BENTYL) 10 MG capsule Take 1 Capsule by mouth 4 times daily (before meals and nightly). 360 Capsule 0 03/15/2024 Active levothyroxine (SYNTHROID, LEVOTHROID) 25 MCG tablet Take 1 Tablet by mouth every morning (before breakfast). 90 Tablet 0 03/15/2024 Active cetirizine (ZYRTEC) 10 MG tablet Take 1 Tablet by mouth at bedtime. 90 Tablet 0 03/15/2024 Active Empagliflozin (Jardiance) 25 MG Tab Take 1 Tablet by mouth daily. 30 Tablet 3 05/13/2024 Active glyBURIDE (DIABETA) 5 MG tabletIndications:Typ e 2 diabetes mellitus with microalbuminuria, without long-term current use of insulin (HCC) TAKE 1 TABLET BY MOUTH IN THE MORNING AND 1 IN THE EVENING BEFORE MEAL(S) 180 Tablet 1 05/13/2024 Active Active Problems Patient Care Coordination No te Formatting of this note is d ifferent from the original. Checking Your Blood Sugars Please check your blood sugars every day. Please check your sugars at the following times of day: before breakfast, before bedtime and after lunch Your Blood Sugar Goals Pre Meal: 90-130 2 hours after meals: 110-160 Bedtime: 110-150 Use the Results Bring your glucometer to every appointment Write your fingerstick blood sugars down on a log sheet or record book. Bring them to your appointment Look for patterns in the numbers. The results help you and your provider make decisions about your diabetes treatment plan. Your Results and your Goals Your Result / Date of Completion Your Goal / How Often to Assess Component Value Date HGBA1C 6.6 05/30/2015 Less than 7%--- 2-4 times per year BP Readings from Last 1 Encounters: 06/05/15 94/52 Less than 130/80--- once per year Component Value Date LDL 76 05/30/2015 LDL less than 100--- once per year Component Value Date MALBUR 3.5 05/30/2015 Less than 30--- once per year Wt Readings from Last 1 Encounters: 06/05/15 207 lb 9.6 oz (94.167 kg) Your goal weight by next visit: 200 --- reassess 2-4 times a year Health Maintenance Due Topic Date Due Baseline Health Exam 40-64 2000 Diabetes: Annual Foot Exam 02/02/2015 Influenza (##1 of 1) 03/13/2015 Diabetes: Annual Care Plan 05/08/2015 Your Action Plan Your diabetes is well controlled and no changes are required to your current plan. Check blood glucose as directed and write down all results. Check feet for sores every day Continue to work on weight loss with a goal of losing 2-4 pounds per month Contact me if you experience any barriers to care such as inability to purchase your medication, difficulty getting to your appointments or difficulty understanding your care plan Please get your yearly flu shot When to Call your Healthcare Provider If your blood sugar falls below 70 and you do not know why or you become unconscious If you are sick and unable to take liquids because or nausea or vomiting If you have a fever over 101 If your blood sugar is 300 or higher on greater than 3 separate occasions during the same week If you are just unsure what to do Educational Resources [place] Diabetes Association (www.diabetes.org) Centers for Disease Control and Prevention (www.cdc.gov/diabetes) This care plan was created in collaboration with Myrna Zheng on 06/05/2015 Problem Noted Date Microalbuminuria 09/09/2021 Severe obesity (BMI 35.0-35.9 with comor bidity) 09/09/2021 Aortic valve regurgitation 02/26/2021 Overview: Aortic valve regurgitation Seasonal allergic rhinitis due to pollen 10/15/2020 Paroxysmal atrial fibrillation 9 Overview: Noted on echo 04/2019 Angioedema 04/18/2019 Overview: Patient sent a [employer] message reporting intermittent lip/cheek and tongue swelling (see April 11 2019) resolving with prednisone. She is not on ACEI or ARB. 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 Nonischemic cardiomyopathy 03/27/2019 Overview: Clean cath 03/2019. EF 37% on echo Last Assessment & Plan: Patient's had a substantial increase in left ventricular ejection fraction on medical therapy. She is unable to tolerate HERRERA or ARB or Entresto. Blood pressure leaves little room for us to increase medical management other than a cardioselective beta-ish. Last EF showed a marked improvement we will repeat an echocardiogram in 6 months. PSVT (paroxysmal supraventricular tachyc ardia) 12/28/2017 Last Assessment & Plan: Patient with short episodes of atrial tachycardia identified on interrogation of her device. Migraine 10/22/2016 Overview: Onset age 20's. IBS (irritable bowel syndrome) 7 Overview: Onset approx age 40. Alt C/D. Vertigo 04/09/2015 Obstructive sleep apnea 01/30/2015 Overview: UNTREATED (Jun 2023, October 2022, Aug 2021, January 2022) Osteoarthritis of both hips 08/24/2014 GERD (gastroesophageal reflux disease) 0 01/03/2014 Cervicalgia 10/18/2010 Essential hypertension, benign 1 Last Assessment & Plan: Well controlled on present medical therapies. No changes today. 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 Fatty liver 04/07/2008 Hypothyroid 03/03/2008 Resolved Problems Problem Noted Date Resolved Date Rash 10/15/2020 05/29/2021 Left bundle branch block (LBBB) on electrocardio gram 03/03/2019 09/24/2020 LBBB (left bundle branch block) 06/05/2015 05/29/2021 Overview: EKG 01/30, then stress test, then echo (per Cardio note - strip did not show LBBB). EKG 06/05/2015 again with LBBB Primary osteoarthritis of both hips 11/28/2014 09/24/2020 Cervical rib 04/07/2013 09/09/2021 Osteoarthritis of shoulder 10/18/201009/09 Immunizations Name Administration Dates Next Due Influenza (> 6 Months) 04/08/2011,08/10/2009 Pneumoccoccal(Adult) Polysaccharide PPSV23 07/21 Tdap 02/26/2021,08/10/2009 Family History Medical History Relation Name Comments thyroid cancer Aunt maternal Cancer of the Prostate Father HTN, glaucoma, [place], CABG CA Colon Father's side Uncle UT Maternal Grandfather No Known Problems Maternal Grandmother CA Lung Mother CHF CA Breast Other pat cousin 50's No Known Problems Paternal Grandfather UT Paternal Grandmother stroke Relation Name Status Comments Aunt maternal Father (Age 92) Father's side Maternal Grandfather Maternal Grandmother Mother (Age 89) Other pat cousin 50's Alive Paternal Grandfather Paternal Grandmother Social History Tobacco Use Types Packs/Day Years Used Date Smoking Tobacco: Never Passive Smoke Exposure: Past Smokeless Tobacco: Never Tobacco Cessation:Counseling Given: Not Answered Alcohol Use Standard Drinks/Week Comments Not Currently [...] week 12/14/2019 How often do you attend jewish or sabianist serv ices? Never 12/14/2019 Do you belong to any clubs o r organizations such as jewish groups, unions, fraternal or athletic groups, or [...] file Not on file Not on file Last Filed Vital Signs Vital Sign Reading Time Taken Comments Blood Pressure 106/68 05/13/2024 3:23 PM EDT Pulse 86 05/13/2024 3:23 PM EDT Temperature 36.5 C (97.7 F) 05/13/2024 3:23 PM EDT Respiratory Rate 14 05/13/2024 3:23 PM EDT Oxygen Saturation 98% 05/13/2024 3:23 PM EDT Inhaled Oxygen Concentration - - Weight 85.9 kg (189 lb 6.4 oz) 05/13/2024 3:23 P M EDT Height 161.3 cm (5' 3.5 ) 05/13/2024 3:23 PM EDT Body Mass Index 33.02 05/13/2024 3:23 PM EDT Plan of Treatment Health Maintenance Due Date Last Done Comments Covid-19 Vaccine (#1) 1960 SHINGLES VACCINE (1 of 2) 2010 DIABETES: ANNUAL FOOT EXAM 11/04/202311/03, 09/09/2021, 02/26/2021, Additional history exists MAMMOGRAM 01/18/2024 01/17/2023, 10/12, 11/02/2020, Additional history exists DIABETES: ANNUAL EYE EXAM 04/24/20242022, 02/22/2021, 12/29/2017, Additional history exists BMI CHECK/ADVISE 07/13/2024 05/13/2024, , 12/21/2023, Additional history exists DEPRESSION SCREENING/FOLLOWUP 07/13/2024, 11/03/2022, 02/07/2022, Additional history exists SOCIAL NEEDS SCREENING 07/13/2024 , 10/28/2022, 09/09/2021, Additional history exists DIABETES: BLOOD SUGAR CONTRO L TEST (HGBA1C) 08/11/2024 05/11/2024, 02/08/2024, 02/08/2024, Additional history exists DIABETES/HEART DISEASE: LUIS E AL CHOLESTEROL (LDL) 11/09/2024 11/10/2023, 09/03/2022, 09/03/2021, Additional history exists DIABETES: ANNUAL URINE PROTE IN TEST (MICROALBUMIN) 11/09/2024 11/10/2023, 08/07/2023, 09/03/2022, Additional history exists INFLUENZA (#1) 2025 06/06/2019 (Refu sed), 06/28/2018 (Refused), 04/29/2017 (Refused), Additional history exists PNEUMOCOCCAL VACCINE FOR HIG H RISK PATIENTS (#2) 2025 07/21/2008 COLON CANCER SCREENING 05/09/2029 9, 05/09/2019, 03/16/2009 DTAP/TDAP/TD (3 - Td or Tdap) 02/26/2031 02/26/2021, 08/10/2009 HEPATITIS C SCREENING Completed 06/03/2021, 014 Care Teams Juice Scaleman Relationship Specialty Start Date End Date Fifi Lopez MD [address] [place] [address] [place] PCP - General Internal Medicine 02/12/21 Hima Bell MD [address] [place] [address] [address] [place] [address] Language Asst Cardiovascular Disease 03/29/21 Cadence Caceres NP [address] [place] [address] DR[address] [place] [address] Nurse Practitioner Cardiology 10/21/21
--- OUTSIDE RECORDS SUMMARY | 2025-06-01 01:24 | XMS_ITS | Encounter Summary ---
Author Organization [facility] Address [address] [place] [address] Care Team Providers Care Buttonhole Maker Hand Name Role Phone Fifi Lopez MD Primary Care Provider [phone] Hima Bell MD Unavailable [phone] Cadence Caceres NP Unavailable [phone] Encounter Details Date Type Department Care Team Description 08/10/2023 Pt. Non Urgent Medical Question Adult Medicine [address] [address] Roxie Saenz PA-C [address] [place] [address] [id number] Social History Tobacco Use Types Packs/Day Years [...] week 12/14/2019 How often do you attend hindu or jew serv ices? Never 12/14/2019 Do you belong to any clubs o r organizations such as hindu groups, unions, fraternal or athletic groups, or [...] on filedocumented in this encounter Care Teams Buttonhole Maker Hand Relationship Specialty Start Date End Date Fifi Lopez MD [address] [place] [address] PCP - General Internal Medicine 02/12/21 Hima Bell MD [address] [place] [address] [address] [place] [address] Booking Clerk Cardiovascular Disease 03/29/21 Cadence Caceres, UZAIR [address] [place] [address] [place] [address] Nurse Practitioner Cardiology 10/21/21 documented as of this encounter
--- OUTSIDE RECORDS SUMMARY | 2025-06-01 01:24 | XMS_ITS | Encounter Summary ---
Author Organization [facility] Address [address] [place] [address] Care Team Providers Care Nascar Racer Name Role Phone Fifi Lopez MD Primary Care Provider [phone] Hima Bell MD Unavailable [phone] Cadence Caceres NP Unavailable Reason for Visit * Reason Comments E-prescribe Rx Request Encounter Details Date Type Department Care Team Description 11/21/2023 Refill Adult Medicine [address] [address] Roxie Saenz PA-C [address] [place] [address] [id number] E-prescribe Rx Request Social History Tobacco Use [...] week 12/14/2019 How often do you attend rastafari or rastafarian serv ices? Never 12/14/2019 Do you belong to any clubs o r organizations such as rastafari groups, unions, fraternal or athletic groups, or [...] encounter Miscellaneous Notes * Telephone Encounter - Christopher Coffey M.A. - 11/23/2023 11:10 AM EDT Last ov 08/07/23 next ov 12/21/23 Lab Results Component Value Date TSH 1.60 08/07/2023 TSH 2.12 12/22/2022 TSH 4.23 06/04/2022 TSH 4.49 09/03/2021 TSH 3.08 08/14/2020 documented in this encounter Plan of Treatment Not on file documented as of this encounter Visit Diagnoses Not on filedocumented in this encounter Care Teams Nascar Racer Relationship Specialty Start Date End Date Fifi Lopez MD [address] [place] [address] PCP - General Internal Medicine 02/12/21 Hima Bell MD [address] [place] [address] [place] [address] Compressor Battery Pellets Cardiovascular Disease 03/29/21 Cadence Caceres NP [address] [place] [address] [address] [place] [address] Nurse Practitioner Cardiology 10/21/21 documented as of this encounter
--- OUTSIDE RECORDS SUMMARY | 2025-06-01 01:24 | XMS_ITS | Encounter Summary ---
Author Organization [facility] Address [address] [place] [address] Care Team Providers Care Substitute Teacher Name Role Phone Fifi Lopez MD Primary Care Provider [phone] Hima Bell MD Unavailable [phone] Cadence Caceres NP Unavailable [phone] Encounter Details Date Type Department Care Team Description 06/25/2021 Orders Only Medical Records [address] [place] [address] Hima Moraes MD [address] [place] [address] Social History Tobacco Use Types Packs/Day Years [...] week 12/14/2019 How often do you attend congregation or bahai serv ices? Never 12/14/2019 Do you belong to any clubs o r organizations such as congregation groups, unions, fraternal or athletic groups, or [...] have Coronavirus / COVID-19? No / Unsure 06/17/2021 7:22 AM EST documented as of this encounter Plan of Treatment Not on file documented as of this encounter Procedures Procedure Name Priority Date/Time Associated Diagnosis Comments OUTSIDE PATHOLOGY Routine 06/21/2021 documented in this encounter Results * OUTSIDE PATHOLOGY (06/21/2021) Hima Moraes MD OUTSIDE LAB documented in this encounter Visit Diagnoses Not on filedocumented in this encounter Care Teams Substitute Teacher Relationship Specialty Start Date End Date Fifi Lopez MD [address] [place] [address] PCP - General Internal Medicine 02/12/21 Hima Bell MD [address] [place] [address] [address] [place] [address] Winch Stripper Cardiovascular Disease 03/29/21 Cadence Caceres NP [address] [place] [address] DR[address] [place], [place] [phone] Nurse Practitioner Cardiology 10/21/21 documented as of this encounter
--- OUTSIDE RECORDS SUMMARY | 2025-06-01 01:24 | XMS_ITS | Encounter Summary ---
Author Organization [facility] Address [address] [facility] [place] [address] Care Team Providers Care Adult Basic Education Teacher Name Role Phone Fifi Lopez MD Primary Care Provider [phone] Hima Bell MD Unavailable [phone] Cadence Caceres NP Unavailable [phone] Reason for Visit * Reason Onset Date Comments Prior Authorization 12/22/2023 Encounter Details Date Type Department Care Team Description 12/22/2023 Telephone Gastroenterology - [place] [address] [facility] [address] [place] [address] Siva Andrade PA-C Prior Authorization Social History Tobacco Use Types Packs/Day Years [...] week 12/14/2019 How often do you attend adventist or zoroastrianism serv ices? Never 12/14/2019 Do you belong to any clubs o r organizations such as adventist groups, unions, fraternal or athletic groups, or [...] encounter Miscellaneous Notes * Telephone Encounter - Kalee Gerber M.A. - 12/24/2023 11:05 AM EDT Denied Not covered unless pt needs it for chemo or post op nausea Kalee Gerber Prior Auth Dep Ext [phone] * Telephone Encounter - Alessandra Denton - 12/22/2023 4:05 PM EDT Prior Authorization for Medication-do not complete and send this encounter unless you have the fax from the pharmacy. Is this a Cover My Meds request: Yes -- Pitts Code [id number] Name of Medication Odansetron HCI 4 MG Dose of Medication 4 MG Tablets What is the RX # from the faxed refill? How does patient take this med? 1 Tablet by mouth every 8 hours What Pharmacy did the fax come from: [facility] fax #: [phone] documented in this encounter Plan of Treatment Not on file documented as of this encounter Visit Diagnoses Not on filedocumented in this encounter Care Teams Adult Basic Education Teacher Relationship Specialty Start Date End Date Fifi Lopez MD [address] [place] [address] PCP - General Internal Medicine 02/12/21 Hima Bell MD [address] [place] [address] [place] [address] Card Room Manager Cardiovascular Disease 03/29/21 Cadence Caceres NP [address] [place] [address] [place] [address] Nurse Practitioner Cardiology 10/21/21 documented as of this encounter
--- OUTSIDE RECORDS SUMMARY | 2025-06-01 01:24 | XMS_ITS | Encounter Summary ---
Author Organization [facility] Address [address] [place] [address] Care Team Providers Care Collar Shaper Operator Name Role Phone Fifi Lopez MD Primary Care Provider [phone] Hima Bell MD Unavailable [phone] Cadence Caceres NP Unavailable [phone] Encounter Details Date Type Department Care Team Description 06/21/2021 Hospital Medical Records [address] [place] [address] Hima Moraes MD [address] [place] [address] Social History Tobacco Use Types Packs/Day Years [...] week 12/14/2019 How often do you attend roman catholic or alevism serv ices? Never 12/14/2019 Do you belong to any clubs o r organizations such as roman catholic groups, unions, fraternal or athletic groups, or [...] on filedocumented in this encounter Care Teams Collar Shaper Operator Relationship Specialty Start Date End Date Fifi Lopez MD [address] [place] [address] PCP - General Internal Medicine 02/12/21 Hima Bell MD [address] [place] [address] [address] [place] [address] Blender Conveyor Operator Cardiovascular Disease 03/29/21 Cadence Caceres NP [address] [place] [address] [address] [place] [address] Nurse Practitioner Cardiology 10/21/21 documented as of this encounter
--- OUTSIDE RECORDS SUMMARY | 2025-06-01 01:24 | XMS_ITS | Encounter Summary ---
Author Organization [facility] Address [address] [place] [address] Care Team Providers Care Team Cdl Driver Name Role Phone Trupti Jordan MD Primary Care Provider Fifi Real MD Primary Care Provider [phone] Hima Bell MD Unavailable [phone] Cadence Caceres NP Unavailable [phone] Encounter Details Date Type Department Care Team Description 10/28/2020 Refill Adult Medicine [address] [address] Trupti Jordan MD Social History Tobacco Use [...] week 12/14/2019 How often do you attend anabaptist or yazidi serv ices? Never 12/14/2019 Do you belong to any clubs o r organizations such as anabaptist groups, unions, fraternal or athletic groups, or [...] on filedocumented in this encounter Care Teams Team Cdl Driver Relationship Specialty Start Date End Date Trupti Jordan MD PCP - General 02/09/03 02/11/21 Fifi Lopez MD [address] [place] [address] PCP - General Internal Medicine 02/12/21 Hima Bell MD [address] [place] [address] [address] [place] [address] Elementary Tutor Cardiovascular Disease 03/29/21 Cadence Caceres NP [address] [place] [address] [address] [place], [place] [id number] Nurse Practitioner Cardiology 10/21/21 documented as of this encounter
--- OUTSIDE RECORDS SUMMARY | 2025-06-01 01:24 | XMS_ITS | Encounter Summary ---
Author Organization [facility] Address [address] [place] [address] Care Team Providers Care Vacuum Cleaner Mechanic Name Role Phone Trupti Jordan MD Primary Care Provider Fifi Real MD Primary Care Provider [phone] Hima Bell MD Unavailable [phone] Cadence Caceres NP Unavailable [phone] Encounter Details Date Type Department Care Team Description 10/28/2020 Refill Adult Medicine [address] [address] Paz Chamorro PA-C [address] [place] [address] [id number] Social History Tobacco Use Types Packs/Day Years [...] week 12/14/2019 How often do you attend temple or latter-day serv ices? Never 12/14/2019 Do you belong to any clubs o r organizations such as temple groups, unions, fraternal or athletic groups, or [...] Telephone Encounter - Anita Ruiz M.A. - 10/29/2020 8:48 AM EDT [place] 08/13/2020 telehealth (return in 4 mths) No F/U appt Lab Results Component Value Date TSH 3.08 08/14/2020 Lab Results Component Value Date CHOL 190 05/01/2020 LDL 94 05/01/2020 HDL 54 05/01/2020 TRIG 211 05/01/2020 SGOT 42 01/04/2020 SGPT 48 01/04/2020 Lab Results Component Value Date NA 138 05/01/2020 K 4.0 05/01/2020 CO2 32 05/01/2020 CL 98 05/01/2020 BUN 16 05/01/2020 CREAT 0.86 05/01/2020 GLU 149 05/01/2020 CA 9.8 05/01/2020 GFR > 60 05/01/2020 documented in this encounter Plan of Treatment Not on file documented as of this encounter Visit Diagnoses Not on filedocumented in this encounter Care Teams Vacuum Cleaner Mechanic Relationship Specialty Start Date End Date Trupti Jordan MD PCP - General 02/09/03 02/11/21 Fifi Lopez MD [address] [place] [address] PCP - General Internal Medicine 02/12/21 Hima Bell MD [address] [place] [address] Airplane Charter Clerk Cardiovascular Disease 03/29/21 Cadence Caceres NP [address] [place] [address] [place] [address] Nurse Practitioner Cardiology 10/21/21 documented as of this encounter
--- OUTSIDE RECORDS SUMMARY | 2025-06-01 01:24 | XMS_ITS | Encounter Summary ---
Author Organization [facility] Address [address] [place] [address] Care Team Providers Care Gymnastic Teacher Name Role Phone Trupti Jordan MD Primary Care Provider Fifi Real MD Primary Care Provider [phone] Hima Bell MD Unavailable [phone] Cadence Caceres NP Unavailable [phone] Reason for Visit * Reason Onset Date Comments LAB WORK 02/22/2020 Encounter Details Date Type Department Care Team Description 02/22/2020 Telephone Adult Medicine [address] [address] Trupti Jordan MD LAB WORK Social History Tobacco Use Types Packs/Day Years [...] How often do you attend taoism or zoroastrianism serv ices? Never 12/14/2019 Do [...] Miscellaneous Notes * Telephone Encounter - Belkis Forman M.A. - 02/23/2020 9:35 AM EDT Pt advised lab orders placed. * Telephone Encounter - Paz Chamorro PA-C - 02/22/2020 4:03 PM EDT Orders placed * Telephone Encounter - Jade Mckeon M.A. - 02/22/2020 3:10 PM EDT Please advise Sent to Lashae Chamorro * Telephone Encounter - Tina Hurley - 02/22/2020 1:56 PM EDT I called this patient to schedule her a follow up appointment for April. States she normally has labs done a week prior. I don't see any labs in system. Wants to know if she should have labs done and if so she will need an order placed. Ok to wait for Dr Jordan. documented in this encounter Plan of Treatment Not on file documented as of this encounter Results * (ABNORMAL) LIPID PROFILE (05/01/2020 7:40 AM EDT) Cholesterol 190 0 - 200 mg/dL 05/01/2020 10:55 AM EDT [facility] TRIGLYCERIDES 211(H) 0 - 150 mg/dL 05/01/2020 10:55 AM EDT [facility] HDL CHOLESTEROL 54 >40 mg/dL 0 11:02 AM EDT [facility] LDL CALCULATED 94 0 - 100 mg/dL 05/01/2020 11:02 AM EDT [facility] TC-HDLC RATIO 3.5 0 - 4.4 mg/dL 05/01/2020 11:02 AM EDT [facility] 05/01/2020 7:40 AM EDT 05/01/2020 7:45 AM EDT Paz Chamorro PA-C LAB [facility] * (ABNORMAL) BASIC METABOLIC PANEL (05/01/2020 7:40 AM EDT) GLUCOSE 149(H) 70 - 100 mg/dL 05/01/2020 10:55 AM EDT [facility] Comment:Reference range appl icable to fasting specimens only Blood Urea Nitrogen 16 5 - 25 mg/dL 05/01/2020 10:55 AM EDT [facility] CREAT 0.86 0.5 - 1.1 mg/dL 05/01/2020 10:55 AM EDT [facility] GLOMERULAR FILTRATION RATE > 60 05/01/2020 10:55 AM EDT [facility] Comment: If patient is -South African, multiply result by 1.21 Chronic Kidney Disease: < 60 ml/min/1.73 square meters Kidney Failure: < 15 ml/min/1.73 square meters NA 138 135 - 145 mEq/L 05/01/2020 10:55 AM EDT [facility] K 4.0 3.5 - 5.5 mmol/L 05/01/2020 10:55 AM EDT [facility] CL 98 96 - 110 mmol/L 05/01/2020 10:55 AM EDT [facility] CARBON DIOXIDE (CO2) 32 21 - 32 mmol/L 05/01/2020 10:55 AM EDT [facility] ANION GAP 8 3 - 11 05/01/2020 10:55 AM EDT [facility] CALCIUM 9.8 8.5 - 10.5 mg/dL 05/01/2020 10:55 AM EDT [facility] 05/01/2020 7:40 AM EDT 05/01/2020 7:45 AM EDT Paz Chamorro PA-C LAB [facility] * (ABNORMAL) HEMOGLOBIN A1C (05/01/2020 7:40 AM EDT) GLYCATED HEMOGLOBIN A1C 10.2(H) <6.5 % 05/01/2020 11:55 AM EDT [facility] ESTIMATED AVERAGE GLUCOSE 246 mg/dL 05/01/2020 11:55 AM EDT [facility] 05/01/2020 7:40 AM EDT 05/01/2020 7:45 AM EDT Paz Konterra PA-C LAB [email or web address] * MICROALBUMIN/CREATININE, URINE (05/01/2020 7:40 AM EDT) CREATININE, RANDOM URINE 42 mg/dL 05/01/2020 11:06 AM EDT [facility] MICROALBUMIN, RANDOM 5.6 0.0 - 29.0 mg/L 05/01/2020 11:22 AM EDT [facility] MICROALB/CRE RATIO RANDOM < 13.3 0.0 - 30.0 mg/G 05/01/2020 11:22 AM EDT [facility] 05/01/2020 7:40 AM EDT 05/01/2020 7:44 AM EDT Paz Chamorro PA-C LAB Performing Organization Address City/[facility]/ZIP Co de Phone Number [email or web address] documented in this encounter Visit Diagnoses Diagnosis Type 2 diabetes mellitus without complication, without long-term current use of insulin (HCC)- Primary documented in this encounter Care Teams Gymnastic Teacher Relationship Specialty Start Date End Date Trupti Jordan MD PCP - General 02/09/03 02/11/21 Fifi Lopez MD [address] [place] [address] PCP - General Internal Medicine 02/12/21 Hmia Bell MD [address] [place] [address] [place] [address] Junior Media Buyer Cardiovascular Disease 03/29/21 Cadence Caceres NP [address] [place] [address] [address] [place] [address] Nurse Practitioner Cardiology 10/21/21 documented as of this encounter
--- OUTSIDE RECORDS SUMMARY | 2025-06-01 01:24 | XMS_ITS | Encounter Summary ---
Author Organization [facility] Address [address] [facility] [place] [address] Care Team Providers Care Advanced Manufacturing Vice President Name Role Phone Fifi Lopez MD Primary Care Provider [phone] Hima Bell MD Unavailable [phone] Cadence Caceres NP Unavailable [phone] Reason for Visit * Reason Onset Date Comments Prior Authorization 02/02/2024 Encounter Details Date Type Department Care Team Description 02/02/2024 Telephone Gastroenterology - [place] [address] [facility] [address] [place] [address] Siva Andrade PA-C Prior Authorization [...] week 12/14/2019 How often do you attend lutheran or bahai serv ices? Never 12/14/2019 Do you belong to any clubs o r organizations such as lutheran groups, unions, fraternal or athletic groups, or [...] encounter Miscellaneous Notes * Telephone Encounter - Tina Ott M.A. - 04/20/2024 1:43 PM EDT This was discontinued on 01/22/24 Changed to meclizine The pa was looking for more information * Telephone Encounter - Tina Ott M.A. - 02/04/2024 1:00 PM EDT Prior authorization for the ondansetron was completed today on m Dx code R11.0 nausea * Telephone Encounter - Alessandra Denton - 02/02/2024 3:29 PM EDT Prior Authorization for Medication-do not complete and send this encounter unless you have the fax from the pharmacy. Is this a Cover My Meds request: Yes -- Pitts Code [id number] Name of Medication ondansetron (Zofran) Dose of Medication 4 MG tablet What is the RX # from the faxed refill? How does patient take this med? Take 1 Tablet by mouth every 8 hours as needed What Pharmacy did the fax come from: [facility] fax #: [phone] documented in this encounter Plan of Treatment Not on file documented as of this encounter Visit Diagnoses Not on filedocumented in this encounter Care Teams Advanced Manufacturing Vice President Relationship Specialty Start Date End Date Fifi Lopez MD [address] [place] [address] PCP - General Internal Medicine 02/12/21 Hima Bell MD [address] [place] [address] [place] [address] Telephone Station Installer Cardiovascular Disease 03/29/21 Cadence Caceres NP [address] [place] [address] [place] [address] Nurse Practitioner Cardiology 10/21/21 documented as of this encounter
--- OUTSIDE RECORDS SUMMARY | 2025-06-01 01:24 | XMS_ITS | Encounter Summary ---
Author Organization [facility] Address [address] [place] [address] Care Team Providers Care Die Designer Apprentice Name Role Phone Trupti Jordan MD Primary Care Provider Fifi Real MD Primary Care Provider [phone] Hima Bell MD Unavailable [phone] Cadence Caceres NP Unavailable [phone] Reason for Visit * Reason Onset Date Comments Pipe Line Inspector Feedback 05/09/2020 order Diabetic T eaching Encounter Details Date Type Department Care Team Description 05/09/2020 Telephone Adult Medicine [address] [id number] Trupti Jordan MD Pipe Line Inspector Feedback (order Diabetic Teaching) Social History Tobacco Use Types Packs/Day Years [...] How often do you attend anglican or gnosticist serv ices? Never 12/14/2019 Do you belong [...] have Coronavirus / COVID-19? No / Unsure 05/07/2020 2:37 PM EDT documented as of this encounter Miscellaneous Notes * Telephone Encounter - Trupti Jordan MD - 05/13/2020 11:53 AM EST done * Telephone Encounter - Tinakimberly HernandezCartwright - 05/11/2020 8:30 AM EDT Notes are still not complete I can not complete this referral request at this time , please inform me of when the notes will be completed. * Telephone Encounter - Tina Chay - 05/09/2020 7:24 AM EDT FYI, You referred this pateint on 05/07/20 to Diabetic Teaching, I am unable to facilitate this patientsappointment as your notes are not complete, when they have been completed please let me know so that I can send the notes for appointment scheduling. Thank You, Tina Justice [facility] Referrals Rep. Ext. [phone] documented in this encounter Plan of Treatment Not on file documented as of this encounter Visit Diagnoses Not on filedocumented in this encounter Care Teams Die Designer Apprentice Relationship Specialty Start Date End Date Trupti Jordan MD PCP - General 02/09/03 02/11/21 Fifi Lopez MD [address] [place] [address] PCP - General Internal Medicine 02/12/21 Hima Bell MD [address] [place] [address] [address]IVE [address] [place] [address] Marketing Research Coordinator Cardiovascular Disease 03/29/21 Cadence Caceres NP [address] [place] [address] [address]IVE [address] [place] [address] Nurse Practitioner Cardiology 10/21/21 documented as of this encounter
--- OUTSIDE RECORDS SUMMARY | 2025-06-01 01:25 | XMS_ITS | Encounter Summary ---
Author Organization [facility] Address [address] [facility] [place] [address] Care Team Providers Care Contracts Law Professor Name Role Phone Trupti Jordan MD Primary Care Provider Fifi Real MD Primary Care Provider [phone] Hima Bell MD Unavailable [phone] Cadence Caceres NP Unavailable [phone] Encounter Details Date Type Department Care Team Description 12/13/2018 Hospital Medical Records [address] [place] [address] Social History Tobacco Use Types Packs/Day Years [...] week 12/14/2019 How often do you attend druze or congregation serv ices? Never 12/14/2019 Do you belong to any clubs o r organizations such as druze groups, unions, fraternal or athletic groups, or [...] Name Priority Date/Time Associated Diagnosis Comments OUTSIDE PLAIN FILM Routine 12/13/2018 documented in this encounter Results * OUTSIDE PLAIN FILM (12/13/2018) Provider Abstract RADIOLOGY documented in this encounter Visit Diagnoses Not on filedocumented in this encounter Care Teams Contracts Law Professor Relationship Specialty Start Date End Date Trupti Jordan MD PCP - General 02/09/03 02/11/21 Fifi Lopez MD [address] [place] [address] PCP - General Internal Medicine 02/12/21 Hima Bell MD [address] [address] [place] [address] Eyeglass Lens Grinder Cardiovascular Disease 03/29/21 Cadence Caceres NP [address] [place] [address] [address] [place] [address] Nurse Practitioner Cardiology 10/21/21 documented as of this encounter
--- OUTSIDE RECORDS SUMMARY | 2025-06-01 01:25 | XMS_ITS | Encounter Summary ---
Author Organization [facility] Address [address] [place] [address] Care Team Providers Care Pelts Skinner Name Role Phone Fifi Lopez MD Primary Care Provider [phone] Hima Bell MD Unavailable [phone] Cadence Caceres NP Unavailable [phone] Encounter Details Date Type Department Care Team Description 08/29/2021 Telephone Cardio PVC POC [address] [facility] [address] [place] [address] Tina Duval PA-C [address] [place] [address] Social History Tobacco Use Types Packs/Day Years [...] week 12/14/2019 How often do you attend bahai or orthodox serv ices? Never 12/14/2019 Do you belong to any clubs o r organizations such as bahai groups, unions, fraternal or athletic groups, or [...] Miscellaneous Notes * Telephone Encounter - Tina Duval PA-C - 08/29/2021 3:09 PM EST Remote alert BiV ICD core view and thoracic impedance trending down possible heart failure defer further management to you documented in this encounter Plan of Treatment Not on file documented as of this encounter Visit Diagnoses Not on filedocumented in this encounter Care Teams Pelts Skinner Relationship Specialty Start Date End Date Fifi Lopez MD [address] [place] [address] PCP - General Internal Medicine 02/12/21 Hima Bell MD [address] [place] [address] [address] [place] [address] Knitter Mechanic Cardiovascular Disease 03/29/21 Cadence Caceres NP [address] [place] [address] [address] [place] [address] Nurse Practitioner Cardiology 10/21/21 documented as of this encounter
--- OUTSIDE RECORDS SUMMARY | 2025-06-01 01:25 | XMS_ITS | Encounter Summary ---
Author Organization [facility] Address [address] [facility] [place] [address] Care Team Providers Care Test Engine Mechanic Name Role Phone Trupti Jordan MD Primary Care Provider Fifi Real MD Primary Care Provider [phone] Hima Bell MD Unavailable [phone] Cadence Caceres NP Unavailable [phone] Reason for Visit * Reason Onset Date Comments refill request 08/29/2018 Encounter Details Date Type Department Care Team Description 08/29/2018 Refill Gastroenterology - [address] [place] [phone] Nando Carrera MD refill request Social History Tobacco Use Types Packs/Day Years [...] week 12/14/2019 How often do you attend restorationism or bahai serv ices? Never 12/14/2019 Do you belong to any clubs o r organizations such as restorationism groups, unions, fraternal or athletic groups, or [...] encounter Miscellaneous Notes * Telephone Encounter - Yvette Duarte L.P.N. - 08/30/2018 8:41 AM EST Last ordered 08/03/17 Last seen 10/22/16 * Telephone Encounter - Yvette Duarte L.P.N. - 08/30/2018 8:40 AM ESTFrom: Myrna Zheng To: Nando Carrera MD Sent: 08/29/2018 2:11 PM EST Subject: Medication Renewal Request Original authorizing provider: MD Myrna Loomis would like a refill of the following medications: omeprazole (PRILOSEC) 20 MG capsule [Nando Carrera MD] Preferred pharmacy: [facility] [address] [place] [address] Comment: Medication renewals requested in this message routed to other providers: simvastatin (ZOCOR) 40 MG tablet [Trupti Jordan MD] dicyclomine (BENTYL) 10 MG capsule [Phuc Coello PA-C] documented in this encounter Plan of Treatment Not on file documented as of this encounter Visit Diagnoses Not on filedocumented in this encounter Care Teams Test Engine Mechanic Relationship Specialty Start Date End Date Trupti Jordan MD PCP - General 02/09/03 02/11/21 Fifi Lopez MD [address] [place] [address] PCP - General Internal Medicine 02/12/21 Hima Bell MD [address] [place] [address] Line Walker Cardiovascular Disease 03/29/21 Cadence Caceres NP [address] [place] [address] [place] [address] Nurse Practitioner Cardiology 10/21/21 documented as of this encounter
--- OUTSIDE RECORDS SUMMARY | 2025-06-01 01:25 | XMS_ITS | Encounter Summary ---
Author Organization [facility] Address [address] [place] [address] Care Team Providers Care Braddisher Name Role Phone Trupti Jordan MD Primary Care Provider Fifi Real MD Primary Care Provider [phone] Hima Bell MD Unavailable [phone] Cadence Caceres NP Unavailable [phone] Encounter Details Date Type Department Care Team Description 11/18/2019 Shoe Sewing Machine Operator And Tender Report Medical Records [address] [place] [address] Hima Bell MD [address] [place] [address] [address] [place] [address] Social History Tobacco Use Types Packs/Day Years [...] How often do you attend restorationism or episcopalian serv ices? Never 12/14/2019 Do you belong [...] on filedocumented in this encounter Care Teams Braddisher Relationship Specialty Start Date End Date Trupti Jordan MD PCP - General 02/09/03 02/11/21 Fifi Lopez MD [address] [place] [address] PCP - General Internal Medicine 02/12/21 Hima Bell MD [address] [place] [address] [place] [address] Clinic Director Cardiovascular Disease 03/29/21 Cadence Caceres NP [address] [facility] [address] [place] [address] Nurse Practitioner Cardiology 10/21/21 documented as of this encounter
--- OUTSIDE RECORDS SUMMARY | 2025-06-01 01:25 | XMS_ITS | Encounter Summary ---
Author Organization [facility] Address [address] [place] [address] Care Team Providers Care Groundwater Consultant Name Role Phone Fifi Lopez MD Primary Care Provider [phone] Hima Bell MD Unavailable [phone] Cadence Caceres NP Unavailable [phone] Reason for Visit * Reason Comments E-prescribe Rx Request Encounter Details Date Type Department Care Team Description 05/18/2022 Refill Adult Medicine [address] [address] Roxie Saenz PA-C [address] [place] [address] [id number] E-prescribe Rx Request Social History Tobacco Use [...] How often do you attend temple or jewish serv ices? Never 12/14/2019 Do you belong [...] was confirmed or suspected to have Coronavirus/COVID-19? Unable to assess 05/09/2022 8:04 AM EDT documented as of this encounter Miscellaneous Notes * Telephone Encounter - Leonel Nava M.A. - 05/22/2022 2:40 PM EST Lab Results Component Value Date NA 139 09/03/2021 K 3.8 09/03/2021 CO2 27 09/03/2021 CL 104 09/03/2021 BUN 15 09/03/2021 CREAT 0.85 09/03/2021 GLU 189 09/03/2021 CA 9.8 09/03/2021 GFR > 60 09/03/2021 GERARDO w/Roxie Saenz 02/07/2022 GERARDO w/PCP 05/2021 Next OV w/PCP 06/30/2022 documented in this encounter Plan of Treatment Not on file documented as of this encounter Visit Diagnoses Not on filedocumented in this encounter Care Teams Groundwater Consultant Relationship Specialty Start Date End Date Fifi Lopez MD [address] [place] [address] PCP - General Internal Medicine 02/12/21 Hima Bell MD [address] [place] [address] [place] [address] Or Director Cardiovascular Disease 03/29/21 Cadence Caceres NP [address] [place] [address] [place] [address] [id number] Nurse Practitioner Cardiology 10/21/21 documented as of this encounter
--- OUTSIDE RECORDS SUMMARY | 2025-06-01 01:25 | XMS_ITS | Encounter Summary ---
Author Organization [facility] Address [address] [place] [address] Care Team Providers Care Tennis Coach Name Role Phone Trupti Jordan MD Primary Care Provider Fifi Real MD Primary Care Provider [phone] Hima Bell MD Unavailable [phone] Cadence Caceres NP Unavailable [phone] Encounter Details Date Type Department Care Team Description 06/27/2019 Wood Shingle Roofer Report Medical Records [address] [place] [address] Hima Bell MD [address] [place] [address] DR[address] [place] [address] Social History Tobacco Use Types Packs/Day Years [...] week 12/14/2019 How often do you attend islam or taoist serv ices? Never 12/14/2019 Do you belong to any clubs o r organizations such as islam groups, unions, fraternal or athletic groups, or [...] on filedocumented in this encounter Care Teams Tennis Coach Relationship Specialty Start Date End Date Trupti Jordan MD PCP - General 02/09/03 02/11/21 Fifi Lopez MD [address] [place] [address] PCP - General Internal Medicine 02/12/21 Hima Bell MD [address] [place] [address] [place] [address] Gun Synchronizer Cardiovascular Disease 03/29/21 Cadence Caceres NP [address] [place] [address] Nurse Practitioner Cardiology 10/21/21 documented as of this encounter
--- OUTSIDE RECORDS SUMMARY | 2025-06-01 01:25 | XMS_ITS | Encounter Summary ---
Author Organization [facility] Address [address] [place] [address] Care Team Providers Care Family Preservation Caseworker Name Role Phone Fifi Lopez MD Primary Care Provider [phone] Hima Bell MD Unavailable [phone] Cadence Caceres NP Unavailable [phone] Encounter Details Date Type Department Care Team Description 02/06/2022 Orders Only Adult Medicine [address] [address] Roxie Saenz PA-C [address] [place] [address] [id number] Social History Tobacco Use Types Packs/Day Years [...] week 12/14/2019 How often do you attend sikh or muslim serv ices? Never 12/14/2019 Do you belong to any clubs o r organizations such as sikh groups, unions, fraternal or athletic groups, or [...] suspected to have Coronavirus/COVID-19? No / Unsure 02/07/2022 8:42 AM EDT documented as of this encounter Plan of Treatment Not on file documented as of this encounter Visit Diagnoses Not on filedocumented in this encounter Care Teams Family Preservation Caseworker Relationship Specialty Start Date End Date Fifi Lopez MD [address] [place] [address] PCP - General Internal Medicine 02/12/21 Hima Bell MD [address] [facility] [address] [place] [address] Reed Polisher Cardiovascular Disease 03/29/21 Cadence Caceres NP [address] [place] [address] DR[address] [place] [address] Nurse Practitioner Cardiology 10/21/21 documented as of this encounter
--- OUTSIDE RECORDS SUMMARY | 2025-06-01 01:25 | XMS_ITS | Encounter Summary ---
Author Organization [facility] Address [address] [facility] [place] [address] Care Team Providers Care Regulatory Agency Director Name Role Phone Trupti Jordan MD Primary Care Provider Fifi Real MD Primary Care Provider [phone] Hima Bell MD Unavailable [phone] Cadence Caceres NP Unavailable [phone] Reason for Visit * Reason Comments E-prescribe Rx Request DICYCLOMINE 10MG CAP Encounter Details Date Type Department Care Team Description 01/07/2019 Refill Gastroenterology - [address] [place] [address] Nando Carrera MD E-prescribe Rx Request (DICYCLOMINE 10MG CAP) Social History Tobacco Use Types Packs/Day Years [...] How often do you attend caodaism or zoroastrianism serv ices? Never 12/14/2019 Do [...] encounter Miscellaneous Notes * Telephone Encounter - Marly Delacruz M.A. - 01/07/2019 8:09 AM EDT Seen 01/06/2019, filled 08/2018/map documented in this encounter Plan of Treatment Not on file documented as of this encounter Visit Diagnoses Diagnosis Irritable bowel syndrome with both constipation and diarrhea documented in this encounter Care Teams Regulatory Agency Director Relationship Specialty Start Date End Date Trupti Jordan MD PCP - General 02/09/03 02/11/21 Fifi Lopez MD [address] [place] [address] PCP - General Internal Medicine 02/12/21 Hima Bell MD [address] [place] [address] [place] [address] Medical Delivery Technician Cardiovascular Disease 03/29/21 Cadence Caceres NP [address] [place] [address] [address] [place], [place] [id number] Nurse Practitioner Cardiology 10/21/21 documented as of this encounter
--- OUTSIDE RECORDS SUMMARY | 2025-06-01 01:25 | XMS_ITS | Encounter Summary ---
Author Organization [facility] Address [address] [place] [address] Care Team Providers Care Ceramic Capacitor Processor Name Role Phone Trupti Jordan MD Primary Care Provider Fifi Real MD Primary Care Provider [phone] Hima Bell MD Unavailable [phone] Cadence Caceres NP Unavailable [phone] Reason for Visit * Reason Onset Date Comments Rn Appeals Feedback 08/03/2014 [facility] P T Encounter Details Date Type Department Care Team Description 08/03/2014 Telephone Adult Medicine [address] [id number] Trupti Jordan MD Rn Appeals Feedback ([facility] PT) Social History Tobacco Use Types Packs/Day Years [...] week 12/14/2019 How often do you attend taoist or baptism serv ices? Never 12/14/2019 Do you belong to any clubs o r organizations such as taoist groups, unions, fraternal or athletic groups, or [...] encounter Miscellaneous Notes * Telephone Encounter - Erendira Vaughan - 08/21/2014 11:48 AM EST Note from Dr Jordan 05/08/15, order faxed to [phone] * Telephone Encounter - Shari Ivey - 08/21/2014 10:55 AM EST Janice from [facility] is calling regarding this request. She would like to know if this could be refax to [phone]. The order also needs to have the [facility] ID number, which is [id number]. Any questions please call her at [phone]. * Telephone Encounter - Nadege Walker - 08/03/2014 10:26 AM EST No insurance referral required. DX left hip pain due to DJD Message forwarded to fax order and notes [phone] * Telephone Encounter - Maribell Izabella - 08/03/2014 10:14 AM EST Did you verify this is patients current insurance? YES [place] / [place]: [place] / Product Type: MEDICAID [id number] Effective 04/12/09: BCBS will not retro referral requests over 90 days. If request is for this please instruct patient to call the 800# on their insurance card to appeal. Do not submit a request. Referrals cannot be processed if the insurance is not accurate. If the insurance listed above in red is NO BILLING INFORMATION FOUND FOR THIS ENCOUTNER The patients correct insurance must be obtained and registered in [facility] or their referral can not be processed. Who is calling to request this referral? patient If the caller is not the patient, what is their name? N/A FIRST and LAST NAME of SPECIALIST PATIENT is seeing: [facility] What specialty is this? PT DIAGNOSIS Patient is being seen for (Not a body part or a procedure): hips Have you seen this SPECIALIST for this PROBLEM/DX before?NO If YES, when: Have you checked REVIEW or the APPT DESK to see if this referral has already been done or has visits left? YES Who referred the patient to this specialty? Trupti Jordan Is this visit:Initial Visit Address of Specialist: [address] Phone # of Specialist: [phone] Fax #: (if applicable): Does patient have an appointment scheduled?: YES Date of appointment- (including a retro-request): 08/09/14 Is this appointment related to: Not MVA, WC or Surgery related documented in this encounter Plan of Treatment Not on file documented as of this encounter Visit Diagnoses Not on filedocumented in this encounter Care Teams Ceramic Capacitor Processor Relationship Specialty Start Date End Date Trupti Jordan MD PCP - General 02/09/03 02/11/21 Fifi Lopez MD [address] [place] [address] PCP - General Internal Medicine 02/12/21 Hima Bell MD [address] [place] [address] [address] [place] [address] Acetylene Operator Cardiovascular Disease 03/29/21 Cadence Caceres NP [address] [place] [address] [address] [place] [address] Nurse Practitioner Cardiology 10/21/21 documented as of this encounter
--- OUTSIDE RECORDS SUMMARY | 2025-06-01 01:25 | XMS_ITS | Encounter Summary ---
Author Organization [facility] Address [address] [facility] [place] [address] Care Team Providers Care Deputy District Customs Director Name Role Phone Trupti Jordan MD Primary Care Provider Fifi Real MD Primary Care Provider [phone] Hima Bell MD Unavailable [phone] Cadence Caceres NP Unavailable [phone] Encounter Details Date Type Department Care Team Description 08/31/2019 Mutual Fund Manager Report Medical Records [address] [place] [address] Arun Vasquez MD [address] [facility] [address] [place] [address] Social History Tobacco Use Types Packs/Day Years [...] week 12/14/2019 How often do you attend latter-day or temple serv ices? Never 12/14/2019 Do you belong to any clubs o r organizations such as latter-day groups, unions, fraternal or athletic groups, or [...] on filedocumented in this encounter Care Teams Deputy District Customs Director Relationship Specialty Start Date End Date Trupti Jordan MD PCP - General 02/09/03 02/11/21 Fifi Lopez MD [address] [place] [address] PCP - General Internal Medicine 02/12/21 Hima Bell MD [address] [place] [address] [place] [address] [place] [address] Acting Manager Cardiovascular Disease 03/29/21 Cadence Caceres NP [address] [place] [address] DR[address] [place] [address] Nurse Practitioner Cardiology 10/21/21 documented as of this encounter
--- OUTSIDE RECORDS SUMMARY | 2025-06-01 01:25 | XMS_ITS | Encounter Summary ---
Author Organization [facility] Address [address] [place] [address] Care Team Providers Care Smoke Jumper Name Role Phone Trupti Jordan MD Primary Care Provider Fifi Real MD Primary Care Provider [phone] Hima Bell MD Unavailable [phone] Cadence Caceres NP Unavailable [phone] Encounter Details Date Type Department Care Team Description 08/07/2014 Hand Violin Maker Report Medical Records [address] [place] [address] Reza Navarro MD Social History Tobacco Use Types Packs/Day [...] week 12/14/2019 How often do you attend buddhism or spiritism serv ices? Never 12/14/2019 Do you belong to any clubs o r organizations such as buddhism groups, unions, fraternal or athletic groups, or [...] on filedocumented in this encounter Care Teams Smoke Jumper Relationship Specialty Start Date End Date Trupti Jordan MD PCP - General 02/09/03 02/11/21 Fifi Lopez MD [address] [place] [address] PCP - General Internal Medicine 02/12/21 Hima Bell MD [address] [place] [address] [place] [address] Quality Project Manager Cardiovascular Disease 03/29/21 Cadence Caceres, UZAIR [address] [place] [address] DR[address] [place] [address] Nurse Practitioner Cardiology 10/21/21 documented as of this encounter
--- OUTSIDE RECORDS SUMMARY | 2025-06-01 01:25 | XMS_ITS | Encounter Summary ---
Author Organization [facility] Address [address] [facility] [place] [address] Care Team Providers Care Nurse Discharge Planner Name Role Phone Fifi Lopez MD Primary Care Provider [phone] Hima Bell MD Unavailable [phone] Cadence Caceres NP Unavailable [phone] Encounter Details Date Type Department Care Team Description 02/09/2022 Refill Gastroenterology - [address] [place] [address] Siva Andrade PA-C Social History Tobacco Use [...] week 12/14/2019 How often do you attend sikhism or catholic serv ices? Never 12/14/2019 Do you belong to any clubs o r organizations such as sikhism groups, unions, fraternal or athletic groups, or [...] diarrhea documented in this encounter Care Teams Nurse Discharge Planner Relationship Specialty Start Date End Date Fifi Lopez MD [address] [place] [address] PCP - General Internal Medicine 02/12/21 Hima Bell MD [address] [place] [address] [place] [address] Laboratory Associate Cardiovascular Disease 03/29/21 Cadence Caceres NP [address] [place] [address] DR[address] [place] [address] Nurse Practitioner Cardiology 10/21/21 documented as of this encounter
--- OUTSIDE RECORDS SUMMARY | 2025-06-01 01:25 | XMS_ITS | Encounter Summary ---
Author Organization [facility] Address [address] [facility] [place] [address] Care Team Providers Care Sales Coach Name Role Phone Fifi Lopez MD Primary Care Provider [phone] Hima Bell MD Unavailable [phone] Cadence Caceres NP Unavailable [phone] Reason for Visit * Reason Comments E-prescribe Rx Request Encounter Details Date Type Department Care Team Description 12/12/2021 Refill Gastroenterology - [address] [place] [address] Siva Andrade PA-C E-prescribe Rx Request Social [...] week 12/14/2019 How often do you attend yazidism or orthodoxy serv ices? Never 12/14/2019 Do you belong to any clubs o r organizations such as yazidism groups, unions, fraternal or athletic groups, or [...] suspected to have Coronavirus/COVID-19? No / Unsure 11/18/2021 8:38 AM EDT documented as of this encounter Plan of Treatment Not on file documented as of this encounter Visit Diagnoses Diagnosis Irritable bowel syndrome with both constipation and diarrhea documented in this encounter Care Teams Sales Coach Relationship Specialty Start Date End Date Fifi Lopez MD [address] [place] [address] PCP - General Internal Medicine 02/12/21 Hima Bell MD [address] [facility] [address] [place] [address] Flying Instructor Cardiovascular Disease 03/29/21 Cadence Caceres NP [address] [place] [address] DRIVE [address] [place] [address] Nurse Practitioner Cardiology 10/21/21 documented as of this encounter
--- OUTSIDE RECORDS SUMMARY | 2025-06-01 01:25 | XMS_ITS | Encounter Summary ---
Author Organization [facility] Address [address] [place] [address] Care Team Providers Care Keg Filler Name Role Phone Trupti Jordan MD Primary Care Provider Fifi Real MD Primary Care Provider [phone] Hima Bell MD Unavailable [phone] Cadence Caceres NP Unavailable [phone] Reason for Visit * Reason Comments E-prescribe Rx Request Encounter Details Date Type Department Care Team Description 05/17/2019 Refill Adult Medicine [address] [address] Paz Chamorro PA-C [address] [place] [address] E-prescribe Rx Request Social History Tobacco Use [...] week 12/14/2019 How often do you attend quaker or mandaeism serv ices? Never 12/14/2019 Do you belong to any clubs o r organizations such as quaker groups, unions, fraternal or athletic groups, or [...] encounter Miscellaneous Notes * Telephone Encounter - Sienna Crabtree M.A. - 05/17/2019 1:56 PM EST Lab Results Component Value Date NA 140 12/21/2018 K 3.6 01/05/2019 CO2 32 12/21/2018 CL 100 12/21/2018 BUN 16 12/21/2018 CREAT 0.83 12/21/2018 GLU 213 03/03/2019 CA 9.8 12/21/2018 GFR > 60 12/21/2018 * Telephone Encounter - Divina Ridley - 05/17/2019 10:06 AM EST Patient would like script to be: E-PRESCRIBED/FAXED TO PHARMACY WHEN WAS THE PATIENT'S LAST APPOINTMENT IN ADULT MEDICINE? 03/03/19 WHEN WAS THE LAST TIME THE PATIENT SAW THEIR PCP? Same as above Does patient have an upcoming appointment? Yes 06/06/19 (THE MEDICATION REQUESTED IS ON THE MED [...] N/A Patients current insurance carrier is: Payor: [employer] etoNET FFS / Plan: [facility] [employer] / Product Type: MEDICAID RISK documented in this encounter Plan of Treatment Not on file documented as of this encounter Visit Diagnoses Not on filedocumented in this encounter Care Teams Keg Filler Relationship Specialty Start Date End Date Trupti Jordan MD PCP - General 02/09/03 02/11/21 Fifi Lopez MD [address] [place] [address] PCP - General Internal Medicine 02/12/21 Hima Bell MD [address] [place] [address] [place] [address] Preparer Cardiovascular Disease 03/29/21 Cadence Caceres NP [address] [place] [address] [address] [place] [address] Nurse Practitioner Cardiology 10/21/21 documented as of this encounter
--- OUTSIDE RECORDS SUMMARY | 2025-06-01 01:25 | XMS_ITS | Encounter Summary ---
Author Organization [facility] Address [address] [facility] [place] [address] Care Team Providers Care Manager Servicing Name Role Phone Trupti Jordan MD Primary Care Provider Fifi Real MD Primary Care Provider [phone] Hima Bell MD Unavailable [phone] Cadence Caceres NP Unavailable Encounter Details Date Type Department Care Team Description 06/17/2019 SCAN Medical Records [address] [place] [address] Abstract, Provider Social History Tobacco Use Types [...] week 12/14/2019 How often do you attend jain or sabianism serv ices? Never 12/14/2019 Do you belong to any clubs o r organizations such as jain groups, unions, fraternal or athletic groups, or [...] Name Priority Date/Time Associated Diagnosis Comments OUTSIDE MRI/MRA Routine 06/17/2019 documented in this encounter Results * OUTSIDE MRI/MRA (06/17/2019) Provider Abstract RADIOLOGY documented in this encounter Visit Diagnoses Not on filedocumented in this encounter Care Teams Manager Servicing Relationship Specialty Start Date End Date Trupti Jordan MD PCP - General 02/09/03 02/11/21 Fifi Lopez MD [address] [place] [address] PCP - General Internal Medicine 02/12/21 Hima Bell MD [address] [place] [address] DR[address] [place] [address] Wheelman Cardiovascular Disease 03/29/21 Cadence Caceres NP [address] [place] [address] DR[address] [place] [address] Nurse Practitioner Cardiology 10/21/21 documented as of this encounter
--- OUTSIDE RECORDS SUMMARY | 2025-06-01 01:25 | XMS_ITS | Encounter Summary ---
Author Organization [facility] Address [address] [place] [address] Care Team Providers Care Benefits Consulting Analyst Name Role Phone Trupti Jordan MD Primary Care Provider Fifi Real MD Primary Care Provider [phone] Hima eBll MD Unavailable [phone] Cadence Caecres NP Unavailable [phone] Reason for Visit * Reason Onset Date Comments Orders Call 08/29/2019 Encounter Details Date Type Department Care Team Description 08/29/2019 Pt. Non Urgent Medical Question Adult Medicine [address] [address] Trupti Jordan MD Type 2 diabetes mellitus without complication, without long-term current use of insulin (HCC) (Primary Dx) Social History Tobacco Use Types Packs/Day Years [...] week 12/14/2019 How often do you attend judaism or buddhism serv ices? Never 12/14/2019 Do you belong to any clubs o r organizations such as judaism groups, unions, fraternal or athletic groups, or [...] Telephone Encounter - Belkis Gagnon M.A. - 08/29/2019 9:56 AM ESTFrom: Myrna Zheng To: Trupti Jordan MD Sent: 08/29/2019 9:50 AM EST Subject: Blood Work Good Morning, I have an appointment with Dr. Jordan on Thursday, September 05. I went to get lab work on Thursday.She said there wasn't an order for one. I know I had blood work back in May. So am I all set with getting blood work for this upcoming visit? Thanks, Have a great day, Zoila Zheng documented in this encounter Plan of Treatment Not on file documented as of this encounter Visit Diagnoses Diagnosis Type 2 diabetes mellitus without complication, without long-term current use of insulin (HCC)- Primary documented in this encounter Care Teams Benefits Consulting Analyst Relationship Specialty Start Date End Date Trupti Jordan MD PCP - General 02/09/03 02/11/21 Fifi Lopez MD [address] [place] [address] PCP - General Internal Medicine 02/12/21 Hima Bell MD [address] [place] [address] [place] [address] Licensed Vocational Nurse Cardiovascular Disease 03/29/21 Cadence Caceres NP [address] [place] [address] [address] [place] [address] Nurse Practitioner Cardiology 10/21/21 documented as of this encounter
--- OUTSIDE RECORDS SUMMARY | 2025-06-01 01:25 | XMS_ITS | Encounter Summary ---
Author Organization [facility] Address [address] [facility] [place] [address] Care Team Providers Care Epitaxial Reactor Operator Name Role Phone Fifi Lopez MD Primary Care Provider [phone] Hima Bell MD Unavailable [phone] Cadence Caceres NP Unavailable [phone] Encounter Details Date Type Department Care Team Description 08/31/2022 Refill Gastroenterology - [address] [place] [address] Siva Andrade PA-C Social History Tobacco Use [...] How often do you attend cheondoism or gnosticism serv ices? Never 12/14/2019 Do you belong [...] suspected to have Coronavirus/COVID-19? No / Unsure 09/03/2022 3:19 PM EST documented as of this encounter Miscellaneous Notes * Telephone Encounter - Jenniefr Block M.A. - 09/01/2022 1:33 PM EST GERARDO 02/14/21, no GI f/up Patient will run out. documented in this encounter Plan of Treatment Not on file documented as of this encounter Visit Diagnoses Diagnosis Irritable bowel syndrome with both constipation and diarrhea documented in this encounter Care Teams Epitaxial Reactor Operator Relationship Specialty Start Date End Date Fifi Lopez MD [address] [place] [address] PCP - General Internal Medicine 02/12/21 Hima Bell MD [address] [place] [address] [address] [place] [address] Duco Polisher Cardiovascular Disease 03/29/21 Cadence Caceres NP [address] [place] [address] [address] [place] [address] Nurse Practitioner Cardiology 10/21/21 documented as of this encounter
--- OUTSIDE RECORDS SUMMARY | 2025-06-01 01:25 | XMS_ITS | Encounter Summary ---
Author Organization [facility] Address [address] [facility] [place] [address] Care Team Providers Care Hand Reamer Name Role Phone Trupti Jordan MD Primary Care Provider Ffii Real MD Primary Care Provider [phone] Hima Bell MD Unavailable [phone] Cadence Caceres NP Unavailable [phone] Encounter Details Date Type Department Care Team Description 10/28/2019 Hospital Medical Records [address] [place] [address] Arun Vasquez MD [address] [facility] [address] [place] [address] Social History Tobacco Use Types Packs/Day Years [...] How often do you attend congregation or presybeterian serv ices? Never 12/14/2019 Do you belong [...] on filedocumented in this encounter Care Teams Hand Reamer Relationship Specialty Start Date End Date Trupti Jordan MD PCP - General 02/09/03 02/11/21 Fifi Lopez MD [address] [place] [address] PCP - General Internal Medicine 02/12/21 Hima Bell MD [address] [place] [address] [address] [place] [address] Manual Plate Filler Cardiovascular Disease 03/29/21 Cadence Caceres NP [address] [place] [address] DRIVE [address] [place] [address] Nurse Practitioner Cardiology 10/21/21 documented as of this encounter
--- OUTSIDE RECORDS SUMMARY | 2025-06-01 01:25 | XMS_ITS | Encounter Summary ---
Author Organization [facility] Address [address] [place] [address] Care Team Providers Care Shredding Machine Tender Name Role Phone Trupti Jordan MD Primary Care Provider Fifi Real MD Primary Care Provider [phone] Hima Bell MD Unavailable [phone] Cadence Caceres NP Unavailable [phone] Encounter Details Date Type Department Care Team Description 09/20/2014 Ski Molder Report Medical Records [address] [place] [address] Reza Navarro MD Social History Tobacco Use [...] week 12/14/2019 How often do you attend latter day or hindu serv ices? Never 12/14/2019 Do you belong to any clubs o r organizations such as latter day groups, unions, fraternal or athletic groups, or [...] on filedocumented in this encounter Care Teams Shredding Machine Tender Relationship Specialty Start Date End Date Trupti Jordan MD PCP - General 02/09/03 02/11/21 Fifi Lopez MD [address] [place] [address] PCP - General Internal Medicine 02/12/21 Hima Bell MD [address] [place] [address] [place] [address] Cream Dipper Cardiovascular Disease 03/29/21 Cadence Caceres, UZAIR [address] [place] [address] DRIVE [address] [place] [address] Nurse Practitioner Cardiology 10/21/21 documented as of this encounter
--- OUTSIDE RECORDS SUMMARY | 2025-06-01 01:25 | XMS_ITS | Encounter Summary ---
Author Organization [facility] Address [address] [place] [address] Care Team Providers Care Billboard Installer Name Role Phone Trupti Jordan MD Primary Care Provider Fifi Real MD Primary Care Provider [phone] Hima Bell MD Unavailable [phone] Cadence Caceres NP Unavailable [phone] Reason for Visit * Reason Onset Date Comments Medication 12/23/2018 Encounter Details Date Type Department Care Team Description 12/23/2018 Pt. Non Urgent Medic al Question Adult Medicine [address] [address] Trupti Jordan MD Social History Tobacco Use [...] How often do you attend congregational or yarsanism serv ices? Never 12/14/2019 Do you belong [...] on file documented as of this encounter Progress Notes * DALILA Reese - 12/23/2018 5:58 PM EDT Patient agreed she would take an OTC for her cough. [facility] Johnathan spoke with patient and patient states she does not need RX for cough. documented in this encounter Miscellaneous Notes * Telephone Encounter - Belkis Wolff 12/23/2018 7:40 AM EDTFrom: Myrna Zheng To: Trupti Jordan MD Sent: 12/23/2018 7:34 AM EDT Subject: Prescription Good Morning, On Thursday I saw Liberty Muñoz. She was going to send a prescription for my cough over to [facility]. Iwent there yesterday to pick it up and they said they did not have it. Have a great day, Tiana Zheng documented in this encounter Plan of Treatment Not on file documented as of this encounter Visit Diagnoses Not on filedocumented in this encounter Care Teams Billboard Installer Relationship Specialty Start Date End Date Trupti Jrodan MD PCP - General 02/09/03 02/11/21 Fifi Lopez MD [address] [place] [address] PCP - General Internal Medicine 02/12/21 Hima Bell MD [address] [place] [address] [place] [address] Pipe And Test Supervisor Cardiovascular Disease 03/29/21 Cadence Caceres NP [address] [place] [address] [place] [address] Nurse Practitioner Cardiology 10/21/21 documented as of this encounter
--- OUTSIDE RECORDS SUMMARY | 2025-06-01 01:25 | XMS_ITS | Encounter Summary ---
Author Organization [facility] Address [address] [place] [address] Care Team Providers Care Online Program Coordinator Name Role Phone Fifi Lopez MD Primary Care Provider [phone] Hima Bell MD Unavailable [phone] Cadence Caceres NP Unavailable [phone] Encounter Details Date Type Department Care Team Description 08/03/2022 Refill Respiratory and Diabetes Medicaid/ACO Pharmacist [address] [place], [place] [phone] Lyric Elaine, Pharm.D [address] [place], [place] [phone] Social History Tobacco Use Types Packs/Day Years [...] How often do you attend tenriism or presybeterian serv ices? Never 12/14/2019 Do [...] suspected to have Coronavirus/COVID-19? No / Unsure 08/06/2022 12:13 PM EST documented as of this encounter Miscellaneous Notes * Telephone Encounter - Christopher Coffey M.A. - 08/05/2022 8:12 PM EST Last refill 07/09/22 # 30 with one refill Pt is scheduled for visit 08/06/22 Lab Results Component Value Date HGBA1C 8.9 06/04/2022 MALBUR 19.2 09/03/2021 MALBCR 8.4 09/03/2021 CHOL 155 09/03/2021 LDL 78 09/03/2021 HDL 52 09/03/2021 TRIG 125 09/03/2021 GLU 129 06/04/2022 CREAT 0.79 06/04/2022 documented in this encounter Plan of Treatment Not on file documented as of this encounter Visit Diagnoses Not on filedocumented in this encounter Care Teams Online Program Coordinator Relationship Specialty Start Date End Date Fifi Lopez MD [address] [place] [address] PCP - General Internal Medicine 02/12/21 Hima Bell MD [address] [place] [address] [place] [address] Pipe Bending Machine Operator Cardiovascular Disease 03/29/21 Cadence Caceres NP [address] [place] [address] [address] [place] [address] Nurse Practitioner Cardiology 10/21/21 documented as of this encounter
--- OUTSIDE RECORDS SUMMARY | 2025-06-01 01:25 | XMS_ITS | Encounter Summary ---
Author Organization [facility] Address [address] [facility] [place] [address] Care Team Providers Care Engineering Supervisor Name Role Phone Trupti Jordan MD Primary Care Provider Fifi Real MD Primary Care Provider [phone] Hima Bell MD Unavailable [phone] Cadence Caceres NP Unavailable [phone] Reason for Visit * Reason Onset Date Comments APPOINTMENT 01/06/2019 Encounter Details Date Type Department Care Team Description 01/06/2019 Telephone Gastroenterology - [address] [place] [address] Nando Carrera MD APPOINTMENT Social History Tobacco Use Types Packs/Day Years [...] week 12/14/2019 How often do you attend muslim or scientology serv ices? Never 12/14/2019 Do you belong to any clubs o r organizations such as muslim groups, unions, fraternal or athletic groups, or [...] encounter Miscellaneous Notes * Telephone Encounter - Eliana Castano - 01/06/2019 2:05 PM EDT Pt called back to set up colon appt with Dr. Carrera. Thanks. * Telephone Encounter - Urmila Brian - 01/06/2019 9:59 AM EDT Lm to have pt call back to book colonoscopy with Dr. Carrera documented in this encounter Plan of Treatment Not on file documented as of this encounter Visit Diagnoses Not on filedocumented in this encounter Care Teams Engineering Supervisor Relationship Specialty Start Date End Date Trupti Jordan MD PCP - General 02/09/03 02/11/21 Fifi Lopez MD [address] [place] [address] PCP - General Internal Medicine 02/12/21 Hima Bell MD [address] [place] [address] [address] [place] [address] Health Policy Nurse Cardiovascular Disease 03/29/21 Cadence Caceres NP [address] [place] [address] DRIVE [address] [place] [address] Nurse Practitioner Cardiology 10/21/21 documented as of this encounter
--- OUTSIDE RECORDS SUMMARY | 2025-06-01 01:25 | XMS_ITS | Encounter Summary ---
Author Organization [facility] Address [address] [facility] [place] [address] Care Team Providers Care Hardware Installation Coordinator Name Role Phone Trupti Jordan MD Primary Care Provider Fifi Rela MD Primary Care Provider [phone] Hima Bell MD Unavailable [phone] Cadence Caceres NP Unavailable [phone] Encounter Details Date Type Department Care Team Description 05/13/2019 Linoleum Printer Report Medical Records [address] [place] [address] Hima Bell MD [address] [place] [address] DRIVE [address] [place] [address] Social History Tobacco Use Types Packs/Day Years [...] week 12/14/2019 How often do you attend adventism or yarsani serv ices? Never 12/14/2019 Do you belong to any clubs o r organizations such as adventism groups, unions, fraternal or athletic groups, or [...] on filedocumented in this encounter Care Teams Hardware Installation Coordinator Relationship Specialty Start Date End Date Trupti Jordan MD PCP - General 02/09/03 02/11/21 Fifi Lopez MD [address] [place] [address] PCP - General Internal Medicine 02/12/21 Hima Bell MD [address] [place] [address] [place] [address] Assistant Sales Center Manager Cardiovascular Disease 03/29/21 Cadence Caceres NP [address] [place] [address] Nurse Practitioner Cardiology 10/21/21 documented as of this encounter
--- OUTSIDE RECORDS SUMMARY | 2025-06-01 01:25 | XMS_ITS | Encounter Summary ---
Author Organization [facility] Address [address] [facility] [place] [place] [address] Care Team Providers Care Sergeant Of Corrections Name Role Phone Trupti Jordan MD Primary Care Provider Fifi Real MD Primary Care Provider [phone] Hima Bell MD Unavailable [phone] Cadence Caceres NP Unavailable [phone] Encounter Details Date Type Department Care Team Description 10/04/2014 Education Managers Report Medical Records [address] [place] [address] Walt Nick PA-C Social History Tobacco Use Types Packs/Day [...] week 12/14/2019 How often do you attend mandaen or episcopalian serv ices? Never 12/14/2019 Do you belong to any clubs o r organizations such as mandaen groups, unions, fraternal or athletic groups, or [...] on filedocumented in this encounter Care Teams Sergeant Of Corrections Relationship Specialty Start Date End Date Trupti Jordan MD PCP - General 02/09/03 02/11/21 Fifi Lopez MD [address] [place] [address] PCP - General Internal Medicine 02/12/21 Hima Bell MD [address] [place] [address] [place] [address] Plaque Maker Cardiovascular Disease 03/29/21 Cadence Caceres, UZAIR [address] [facility] [address] [place] [address] Nurse Practitioner Cardiology 10/21/21 documented as of this encounter
--- OUTSIDE RECORDS SUMMARY | 2025-06-01 01:25 | XMS_ITS | Encounter Summary ---
Author Organization [facility] Address [address] [place] [address] Care Team Providers Care Finishing Frame Runner Name Role Phone Trupti Jordan MD Primary Care Provider Fifi Real MD Primary Care Provider [phone] Hima Bell MD Unavailable [phone] Cadence Caceres NP Unavailable [phone] Encounter Details Date Type Department Care Team Description 08/18/2019 Equity Director Report Medical Records [address] [place] [address] Hima Bell MD [address] [place] [address] [address] [place] [address] Social History Tobacco Use Types Packs/Day Years [...] week 12/14/2019 How often do you attend mormonism or moravian serv ices? Never 12/14/2019 Do you belong to any clubs o r organizations such as mormonism groups, unions, fraternal or athletic groups, or [...] on filedocumented in this encounter Care Teams Finishing Frame Runner Relationship Specialty Start Date End Date Trupti Jordan MD PCP - General 02/09/03 02/11/21 Fifi Lopez MD [address] [place] [address] PCP - General Internal Medicine 02/12/21 Hima Bell MD [address] [place] [address] [place] [address] Public Affairs Director Cardiovascular Disease 03/29/21 Cadence Caceres NP [address] [facility] [address] [place] [address] Nurse Practitioner Cardiology 10/21/21 documented as of this encounter
--- OUTSIDE RECORDS SUMMARY | 2025-06-01 01:25 | XMS_ITS | Encounter Summary ---
Author Organization [facility] Address [address] [place] [address] Care Team Providers Care Lithographic Press Operator Name Role Phone Fifi Lopez MD Primary Care Provider [phone] Hima Bell MD Unavailable [phone] Cadence Caceres NP Unavailable [phone] Encounter Details Date Type Department Care Team Description 01/05/2022 Refill Adult Medicine [address] [address] Roxie Saenz PA-C [address] [place] [id number] Social History Tobacco Use Types Packs/Day Years [...] How often do you attend judaism or pentecostal serv ices? Never 12/14/2019 Do you belong [...] encounter Miscellaneous Notes * Telephone Encounter - Gris Washburn - 01/10/2022 9:43 AM EDT Scheduled * Telephone Encounter - Roxie Saenz PA-C - 01/06/2022 12:15 PM EDT Please schedule with PCP in June 2022 and route back. Roxie Saenz PA-C * Telephone Encounter - Gris Washburn - 01/06/2022 10:48 AM EDT Donny 09/09/21 Ov 02/07/22 Lab Results Component Value Date TSH 4.49 09/03/2021 Lab Results Component Value Date NA 139 09/03/2021 K 3.8 09/03/2021 CO2 27 09/03/2021 CL 104 09/03/2021 BUN 15 09/03/2021 CREAT 0.85 09/03/2021 GLU 189 09/03/2021 CA 9.8 09/03/2021 GFR > 60 09/03/2021 documented in this encounter Plan of Treatment Not on file documented as of this encounter Visit Diagnoses Not on filedocumented in this encounter Care Teams Lithographic Press Operator Relationship Specialty Start Date End Date Fifi Lopez MD [address] [place] [address] PCP - General Internal Medicine 02/12/21 Hima Bell MD [address] [place] [address] [place] [address] Rigger Apprentice Cardiovascular Disease 03/29/21 Cadence Caceres NP [address] [place] [address] [address] [place] [address] Nurse Practitioner Cardiology 10/21/21 documented as of this encounter
--- OUTSIDE RECORDS SUMMARY | 2025-06-01 01:25 | XMS_ITS | Encounter Summary ---
Author Organization [facility] Address [address] [facility] [place] [address] Care Team Providers Care Lithograph Operator Name Role Phone Fifi Lopez MD Primary Care Provider [phone] Hima Bell MD Unavailable [phone] Cadence Caceres NP Unavailable [phone] Reason for Visit * Reason Comments Remote Device Check Encounter Details Date Type Department Care Team Description 02/14/2022 Remote Device Check Cardio PVC POC 154 300 [facility] 154 [address] Arun Vasquez MD 300 [facility] [address] [place], [place] [phone] Social History Tobacco Use Types Packs/Day Years [...] week 12/14/2019 How often do you attend mu-ism or evangelical serv ices? Never 12/14/2019 Do you belong to any clubs o r organizations such as mu-ism groups, unions, fraternal or athletic groups, or [...] on filedocumented in this encounter Care Teams Lithograph Operator Relationship Specialty Start Date End Date Fifi Lopez MD [address] [place] [address] PCP - General Internal Medicine 02/12/21 Hima Bell MD [address] [facility] [address] [place] [address] Real Estate Representative Cardiovascular Disease 03/29/21 Cadence Caceres NP [address] [place] [address] [address] [place] [address] Nurse Practitioner Cardiology 10/21/21 documented as of this encounter
--- OUTSIDE RECORDS SUMMARY | 2025-06-01 01:25 | XMS_ITS | Encounter Summary ---
Author Organization [facility] Address [address] [place] [address] Care Team Providers Care Geodesy Teacher Name Role Phone Fifi Lopez MD Primary Care Provider [phone] Hima Bell MD Unavailable [phone] Cadence Caceres NP Unavailable [phone] Reason for Visit * Reason Onset Date Comments medication problems 02/11/2022 Encounter Details Date Type Department Care Team Description 02/11/2022 Telephone Adult Medicine [address] [phone] Fifi Lopez MD [address] [place] [address] [phone] medication problems Social History Tobacco Use Types Packs/Day Years [...] week 12/14/2019 How often do you attend mandaeism or nondenominational serv ices? Never 12/14/2019 Do you belong to any clubs o r organizations such as mandaeism groups, unions, fraternal or athletic groups, or [...] encounter Miscellaneous Notes * Telephone Encounter - Swapna Armstrong - 02/11/2022 4:11 PM EDT Spoke with pt, states it was previously taken during the day and stated she would like it to be switched to daily due to her not being able to fall asleep or being up every hour due to frequent urination. * Telephone Encounter - Rachel Tiwari - 02/11/2022 3:50 PM EDT Patient is calling, please call back. * Telephone Encounter - Swapna Armstrong - 02/11/2022 2:59 PM EDT LVM for pt to call back [phone] * Telephone Encounter - Roxie Saenz PA-C - 02/11/2022 2:50 PM EDT Preferred at night, if patient cannot tolerate - then can move to morning. Roxie Saenz PA-C * Telephone Encounter - Belkis Gganon M.A. - 02/11/2022 2:32 PM EDT Please advise * Telephone Encounter - Jan Nava - 02/11/2022 2:14 PM EDT Who is calling? A pharmacist: Pharmacy: [facility] Pharmacist Name: [facility] Name of the medication hydrochlorothiazide (HYDRODIURIL) 25 MG tablet What is the specific problem or interaction? Pharmacist calling states that medication instructs totake medication at bedtime. Pharmacist reccomends that medication be updated to taking at morning as the medication will cause the patient to urinate constantly through the night If the patient is having a problem with taking the med - how long has the problem been going on? N/A documented in this encounter Plan of Treatment Not on file documented as of this encounter Visit Diagnoses Not on filedocumented in this encounter Care Teams Geodesy Teacher Relationship Specialty Start Date End Date Fifi Lopez MD [address] [place] [address] PCP - General Internal Medicine 02/12/21 Hima Bell MD [address] [place] [address] [address] [place] [address] Bilingual Nanny Cardiovascular Disease 03/29/21 Cadence Caceres NP [address] [place] [address] [address] [place] [address] Nurse Practitioner Cardiology 10/21/21 documented as of this encounter
--- OUTSIDE RECORDS SUMMARY | 2025-06-01 01:25 | XMS_ITS | Encounter Summary ---
Author Organization [facility] Address [address] [facility] [place] [address] Care Team Providers Care Floor Sander Name Role Phone Trupti Jordan MD Primary Care Provider Fifi Real MD Primary Care Provider [phone] Hima Bell MD Unavailable [phone] Cadence Caceres NP Unavailable [phone] Encounter Details Date Type Department Care Team Description 11/21/2019 Incoming Correspondence Medical Records [address] [place] [address] [facility] Social History Tobacco Use Types Packs/Day Years [...] week 12/14/2019 How often do you attend pentecostalism or mosque serv ices? Never 12/14/2019 Do you belong to any clubs o r organizations such as pentecostalism groups, unions, fraternal or athletic groups, or [...] on filedocumented in this encounter Care Teams Floor Sander Relationship Specialty Start Date End Date Trupti Jordan MD PCP - General 02/09/03 02/11/21 Fifi Lopez MD [address] [place] [address] PCP - General Internal Medicine 02/12/21 Hima Bell MD [address] [place] [address] [place] [address] Inside Sales Professional Cardiovascular Disease 03/29/21 Cadence Caceres, UZAIR [address] [place] [address] DRIVE [address] [place] [address] Nurse Practitioner Cardiology 10/21/21 documented as of this encounter
--- OUTSIDE RECORDS SUMMARY | 2025-06-01 01:25 | XMS_ITS | Encounter Summary ---
Author Organization [facility] Address [address] [place] [address] Care Team Providers Care Buccaro Name Role Phone Trupti Jordan MD Primary Care Provider Fifi Real MD Primary Care Provider [phone] Hima Bell MD Unavailable [phone] Cadence Caceres NP Unavailable [phone] Encounter Details Date Type Department Care Team Description 03/17/2019 Hospital Medical Records [address] [place] [address] Hima Bell MD [address] [place] [address] [address] [place] [address] Social History Tobacco Use Types Packs/Day Years [...] How often do you attend rastafari or druze serv ices? Never 12/14/2019 Do you belong [...] on filedocumented in this encounter Care Teams Buccaro Relationship Specialty Start Date End Date Trupti Jordan MD PCP - General 02/09/03 02/11/21 Fifi Lopez MD [address] [place] [address] PCP - General Internal Medicine 02/12/21 Hima Bell MD [address] [place] [address] [place] [address] [place] [address] Actimize Architect Cardiovascular Disease 03/29/21 Cadence Caceres NP [address] [place] [address] DR[address] [place] [address] Nurse Practitioner Cardiology 10/21/21 documented as of this encounter
--- OUTSIDE RECORDS SUMMARY | 2025-06-01 01:25 | XMS_ITS | Encounter Summary ---
Author Organization [facility] Address [address] [facility] [place] [address] Care Team Providers Care Supply Chain Generalist Name Role Phone Trupti Jordan MD Primary Care Provider Fifi Real MD Primary Care Provider [phone] Hima Bell MD Unavailable [phone] Cadence Caceres NP Unavailable [phone] Encounter Details Date Type Department Care Team Description 09/19/2019 Refill Gastroenterology - [address] [place] [address] Nando Carrera MD Social History Tobacco Use Types Packs/Day [...] week 12/14/2019 How often do you attend evangelical or yazidism serv ices? Never 12/14/2019 Do you belong to any clubs o r organizations such as evangelical groups, unions, fraternal or athletic groups, or [...] Telephone Encounter - Yovana Scott M.A. - 09/19/2019 8:17 AM EDT Last office visit 01/06/2019 documented in this encounter Plan of Treatment Not on file documented as of this encounter Visit Diagnoses Diagnosis Irritable bowel syndrome with both constipation and diarrhea documented in this encounter Care Teams Supply Chain Generalist Relationship Specialty Start Date End Date Trupti Jordan MD PCP - General 02/09/03 02/11/21 Fifi Lopez MD [address] [place] [address] PCP - General Internal Medicine 02/12/21 Hima Bell MD [address] [place] [address] DRIVE [address] [place] [address] Brick Paving Checker Cardiovascular Disease 03/29/21 Cadence Caceres NP [address] [place] [address] DRIVE [address] [place] [address] Nurse Practitioner Cardiology 10/21/21 documented as of this encounter
== END 2025-05-31 12:40 | disposition home or self-care (01) ==
LOC: HO.LAB 12:39
PROVIDERS: PCP Internal Medicine; Visit Provider Advanced Practice Midwife
DX: Z01.411 Encounter for gynecological examination (general) (routine) with abnormal findings (principal); N90.89 Other specified noninflammatory disorders of vulva and perineum; N89.8 Other specified noninflammatory disorders of vagina; Z20.2 Contact with and (suspected) exposure to infections with a predominantly sexual mode of transmission
CPT/HCPCS: 81515; 99386